=== PATIENT | female | born 1990 | race Caucasian/White ===

== ENCOUNTER 2023-03-18 07:30 | Inpatient (IN) ==
--- OUTSIDE RECORDS SUMMARY | 2023-03-18 07:37 | External Medical Summary | Summary of Care ---
Author Name Unknown Organization [facility] Address [address] [facility] [place] [address] Phone [phone] Care Team Providers Care Business Banker Name Role Phone Iain Ayon PA-C Primary Care Provider Reason for Visit * Reason Comments Return Visit Encounter Details Date Type Department Care Team (Late st Contact Info) Description 03/04/2023 3:45 PM EST Office Visit Gynecology/Obstetics Soc[facility] Carrero [address] [facility] [place] [phone] Evelyn Roger PA-C [address] [facility] [place] [phone] Supervision of high-risk , third trimester*; Chronic hypertension in ; Antepartum multigravida of advanced maternal age; History of pre-eclampsia Allergies No known active allergiesdocumented as of this encounter (statuses as of 03/05/2023) Medications Medication Sig Dispensed Refills Start Date End Date Status +DHA 28-0.975 & 200 MG Oral Take 1 Tablet by mouth daily. 0 Active Cetirizine HCl 10 MG Oral Tablet (ZyrTEC) Take 1 Tablet by mouth in the morning. 0 Active Docusate Sodium 100 MG Oral Capsule (Colace) Take 1 Capsule by mouth daily as needed for Constipation. 30 Capsule 2 11/18/2022 Active Ondansetron 4 MG Oral Tablet Disintegrating (Zofran) Place 1 Tablet on tongue every 8 hours as needed for Nausea. dissolve on tongue. 30 Tablet 1 12/25/2022 Active Ferrous Sulfate 325 (65 Fe) MG Oral Tablet (Feosol) Take 1 Tablet by mouth daily. 90 Tablet 0 12/30/2022 Active Labetalol HCl 100 MG Oral Tablet (Normodyne)Indications :Chronic hypertension in Take 2 Tablets by mouth in the morning and 2 Tablets before bedtime. 120 Tablet 3 01/31/2023 Active documented as of this encounter (statuses as of 03/05/2023) Active Problems Problem Noted Date Diagnosed Date Uterine fibroid in 11/27/2022 Last Assessment & Plan: Fibroid is anterior and stable in size from first trimester exam. It is nonobstructive. Antepartum multigravida of advanced maternal age 0508/15/2022 Overview: Ms. Renteria will be 33 years-old at time of delivery ([facility] 03/24/23). Qnatal testing is low risk. Last Assessment & Plan: CONSIDERATIONS: We reviewed the most pertinent aspects of the following: Advanced maternal age (AMA) refers to a woman with a singh who will be at the age of 35 or older at the estimated time of delivery and may be associated with increased morbidity. Cell-free DNA (cffDNA) screening is a genetic screening option that analyzes maternal blood for DNA that is placental in origin and targets the following conditions: Trisomy 21 (Down syndrome), trisomy 18, trisomy 13, and sex chromosome abnormalities such as monosomy X (Bennett syndrome), and sex chromosome trisomies (triple X, Klinefelter syndrome, XYY). It may also evaluate for other genetic alterations such as microdeletions, depending on the specific test. It reveals the sex of the fetus but should generally not be performed solely for this indication. The screening test can be performed after 10 weeks gestation. Results provided are NOT diagnostic, but provide a risk estimate. Types of results include low-risk/negative, high-risk/positive, and inconclusive. Low-risk results convey a low risk for the conditions screened, while high-risk results will indicate which condition is high risk and the likelihood of the condition based on the results. High-risk and inconclusive results would require follow up with a Maternal- Medicine genetic counselor. Amniocentesis would be recommended in the setting of high-risk results. Results are available 5-7 days after the test is completed. Cost of cffDNA screening is dependent on health insurance plan. Brochure provided to patient with contact information to call and inquire about insurance coverage [place] [address]). Patient aware not all insurances cover this test. The performing laboratory will bill the insurance directly. Offer MSAFP only (not Quad Screen) at 16-22 weeks if screening for open neural tube defects is desired. Amniocentesis for diagnosis of chromosomal abnormalities is also available. The risk of complications from the procedure and that risk is 1 in 500 (0.2%). In addition to the risk of chromosomal abnormalities, there is an increased risk of congenital/structural anomalies. RECOMMENDATIONS: Recommend MFM anatomy ultrasound at 19-20 weeks gestation. Obesity in , antepartum 08/15/2022 Overview: Pre-gravid BMI 33.57 (#185, 5'2") Passed early 1 hour glucose test. Last Assessment & Plan: I reviewed the ultrasound. The anatomy that was visualized appears unremarkable and the biometry is appropriate for the gestational age. The amniotic fluid volume is subjectively normal. I reviewed her low risk noninvasive screen in light of a normal ultrasound finding. BMI 34.0-34.9,adult 08/13/2022 Overview: Advised early one hour glucose test. MATERNAL MEDICINE referral made related nausea, antepartum 08/13/2022 Overview: Has Zofran if needed - only used one time. Doing well overall with nausea. Anxiety during 08/13/2022 Overview: Reports anxiety is stable overall without medication. Patient declines assistance. No thoughts of self harm. Last Assessment & Plan: She does state her anxiety is worsening during the . She does not see a counselor nor shown any medication. She tried a low dose of Lexapro in the past with no success. Did discuss with her the benefits of adequately treating anxiety during the . I told her that in patients who have inadequately or poorly treated anxiety and depression in the antepartum period, they are at an increased risk for depression. Therefore, I do recommend treating her during the antepartum. . We discussed the possibility of medications. She was referred to our behavioral health specialist for counseling as well. Supervision of high-risk , [facility] 07/25/2022 Overview: Estimated Date of Delivery: 03/24/23 Continue vitamin. O positive blood type. Rubella and varicella immune. Qnatal testing low risk. Declines MSAFP testing. S/p MATERNAL MEDICINE anatomy ultrasound. Following with MATERNAL MEDICINE for growth ultrasounds. Passed 1 hour glucose test. S/p CBC with anemia - started on iron. Tdap vaccine completed. GBS culture negative. contraception: possible tubal ligation. Desires a breast pump. Has a breast pump. Patient desires influenza vaccine. Chronic hypertension in 07/25/2022 Overview: Chronic hypertension since 2015. Advised patient to schedule an eye exam appointment. EKG normal. Stable on Labetalol. Continue baby aspirin 81 mg daily. Seeing MATERNAL MEDICINE. Referral made to try to get patient blood pressure cuff. Patient has a hand cuff at home, but would like a good blood pressure cuff. Recommended daily blood pressure readings. Last Assessment & Plan: She presents for follow-up of growth secondary to CHTN on medications. Today's ultrasound notes the following: The estimated weight is appropriate for gestational age in the 38th percentile. The visualized anatomy is unremarkable in appearance. The CONNER is normal. A 5.8 cm anterior uterine fibroid is noted. Medication exposure during first trimester of pr egnancy 07/25/2022 Overview: Exposure to Lisinopril in the first trimester. Stopped with knowledge of . Last Assessment & Plan: Lisinopril. When used after the first trimester, APARNA inhibitors such as lisinopril can cause low levels of amniotic fluid, which can lead to Low levels of amniotic fluid can lead to poor lung development, poor growth, poor development of the skull bones, defects, and problems with the development of the kidneys. In the most severe cases, could occur. APARNA inhibitors can also cause low blood pressure and kidney failure in the baby. There are some cases of babies who have from these complications. APARNA inhibitors should be avoided during the second and third trimesters of . HTN, goal below 140/90 07/04/2015 History of pre-eclampsia 07/04/2015 Overview: History of pre-eclampsia with first in 2013. Advised baby aspirin 81 mg daily at 13 weeks. Patient agrees. Baseline pre-eclampsia labs completed. Last Assessment & Plan: CONSIDERATIONS: Discussed that the overall recurrence rate for pre-eclampsia is 20%. The recurrence risk of pre-eclampsia is 5-7% if it was uncomplicated pre-eclampsia in the prior . If it was pre-eclampsia with severe features in the prior , the recurrence risk goes up to 30-65%. Explained to patient that risk factors for development of pre-eclampsia include the primigravid state, history of pre-eclampsia in previous , family history of pre-eclampsia, presence of chronic hypertension, increased BMI, multiple gestation, pre-existing maternal renal disease or diabetes, advanced maternal age, antiphospholipid syndrome and other coagulopathies, chronic maternal autoimmune disease, or prolonged interval between pregnancies. Discussed with patient that the risks associated with a diagnosis of pre- eclampsia which is not monitored and not managed appropriately include development of HELLP syndrome or eclampsia (seizures) and end organ damage to liver, brain, kidneys, or fetus (manifested by growth restriction or ), and even maternal . RECOMMENDATIONS: Recommend baseline pre-eclamptic labwork be done early in subsequent pregnancies to include CBC, AST/ALT, creatinine, and 24 hour total urine protein. Patients should be monitored closely in subsequent pregnancies for signs of pre-eclampsia and managed appropriately to reduce the incidence of associated maternal and risks. Reviewed that pre-eclampsia and HELLP are not preventable conditions. There is some evidence that daily ASA 81mg may decrease the risk for recurrence in patients with a history of pre-eclampsia, and we recommend that she proceed with starting this therapy after 12 weeks. Estimated Date of Delivery Comme nts Yes 03/24/2023 Based on last me nstrual period of 06/17/2022 (Exact Date) documented as of this encounter (statuses as of 03/05/2023) Immunizations Name Administration Dates Next Due Seasonal Influenza, PF, 6 M & above, IM , (FluLaval or Fluzone) 02/04/2023 TDAP (age 10 and older)(Boostrix) 01/24/2023, documented as of this encounter Social History Tobacco Use Types Packs/Day Years Used Date Smoking Tobacco: Never Smokeless Tobacco: Never Alcohol Use Standard Drinks/Week Comments Not Currently 0 (1 standard drink = 0.6 oz pur e alcohol) Denies in PHQ-2 Answer Date Recorded PHQ-2 Score -1 01/26/2018 Hunger Vital Sign Answer Date Recorded Within the past 12 months, y ou worried that your food would run out before you got the money to buy more. Never true 11/14/19 23 Within the past 12 months, t he food you bought just didn't last and you didn't have money to get more. Never true 11/13/2022 [place] Depression Scale Answer Date Recorded [place] Depression Scale Total 6 08/13/2022 The thought of harming myself has occurred to me . Never 08/13/2022 Estimated Date of Delivery Comme nts Yes 03/24/2023 Based on last me nstrual period of 06/17/2022 (Exact Date) Sex and Gender Information Value Date Recorded Sex Assigned at Female 07/23/2022 8:49 PM EDT Gender Identity Female 07/23/2022 8:49 PM EDT Sexual Orientation Straight 07/23/2022 8: 49 PM EDT Job Start Date Occupation Industry Not on file Not on file Not on file documented as of this encounter Last Filed Vital Signs Vital Sign Reading Time Taken Comments Blood Pressure 134/76 03/04/2023 3:28 PM EST Pulse - - Temperature - - Respiratory Rate - - Oxygen Saturation - - Inhaled Oxygen Concentration - - Weight 96.4 kg (212 lb 8 oz) 03/04/2023 3:28 PM EST Height - - Body Mass Index 38.56 07/31/2017 7:22 PM EDT documented in this encounter Progress Notes * Evelyn Roger PA-C - 03/04/2023 3:39 PM EST Evelyn Renteria presents for visit at 37w1d. BP 134/76 | Wt 96.4 kg (212 lb 8 oz) | LMP 06/17/2022 (Exact Date) | BMI 38.56 kg/m | BSA 2.06 m Doing well. Denies vaginal bleeding, leaking of fluid, abdominal pain, or abnormal vaginal discharge. Denies headaches, blurry vision, or right upper quadrant pain. Patient states she feels good movement. Patient has some irregular contractions and vaginal pressure at times. Patient declines cervical check. Blood pressure readings: 132/83 mmHg 124/86 mmHg 124/76 mmHg Physical Exam General: alert and oriented, no acute distress Pulmonary: normal respiratory effort, no accessory muscle use. Abdomen: gravid, soft, non-tender heart rate: 130's bpm [place] Problems (from 08/06/22 to present) Problem Noted Resolved Antepartum multigravida of advanced maternal age 508/15/2022 by Jayda Houston CRNP No MsLisbeth Renteria will be 33 years-old at time of delivery ([facility] 03/24/23). Qnatal testing is low risk. Obesity in , antepartum 08/15/2022 by Jayda Houston CRNP No Pre-gravid BMI 33.57 (#185, 5'2") Anxiety during 08/13/2022 by Evelyn Roger PA-C No Reports anxiety is stable overall without medication. Patient declines assistance. No thoughts of self harm. Supervision of high-risk , third trimester 07/25/2022 by Evelyn Roger PA-C No Estimated Date of Delivery: 03/24/23 Continue vitamin. O positive blood type. Rubella and varicella immune. Qnatal testing low risk. Declines MSAFP testing. S/p MATERNAL MEDICINE anatomy ultrasound. Following with MATERNAL MEDICINE for growth ultrasounds. Passed 1 hour glucose test. S/p CBC with anemia - started on iron. Tdap vaccine completed. GBS culture negative. contraception: possible tubal ligation. Desires a breast pump. Has a breast pump. Patient desires influenza vaccine. Chronic hypertension in 07/25/2022 by Evelyn Roger PA-C No Chronic hypertension since 2015. Advised patient to schedule an eye exam appointment. EKG normal. Stable on Labetalol. Continue baby aspirin 81 mg daily. Seeing MATERNAL MEDICINE. Referral made to try to get patient blood pressure cuff. Patient has a hand cuff at home, but wouldlike a good blood pressure cuff. Recommended daily blood pressure readings. Medication exposure during first trimester of 07/25/2022 by Evelyn Roger PA-C No Exposure to Lisinopril in the first trimester. Stopped with knowledge of . History of pre-eclampsia 07/04/2015 by Claudia Fritz PA-C No History of pre-eclampsia with first in 2013. Advised baby aspirin 81 mg daily at 13 weeks. Patient agrees. Baseline pre-eclampsia labs completed. Plan: -GBS culture negative. -Patient scheduled for IOL at [facility] on 03/18/2023. -O positive blood type. -Blood pressure normal today and at home. Patient denies pre-eclampsia symptoms. Counseled patient on pre-eclampsia symptoms to monitor for. Patient and myself discussed doing pre-eclampsia lab work - patient declines at this time due to normal blood pressure and no symptoms of pre-eclampsia. -BPP /. Weekly BPP until delivery. Counseled patient to call triage/go to labor and delivery if she has any vaginal bleeding, leaking of fluid, vaginal pressure, 6 or more painful contractions in an hour, abdominal pain, decreased movements, headaches, blurry vision, or right upper quadrant pain. Patient verbalized understanding. RTO in 1 week for return appointment or sooner if any concerns. Evelyn Hyatt PA-C documented in this encounter Nursing Notes * Aurelia Rosario LPN - 03/04/2023 3:28 PM EST Routine OB check. Denies questions or complaints. documented in this encounter Plan of Treatment Upcoming Encounters Date Type Department Care Team (Latest Contact Info) Description 03/10/2023 3:45 PM EST Office Visit Gynecology/Obstetic s [address] [phone] Evelyn Roger PA-C [address] [place] [address] 03/11/2023 3:00 PM EST Imaging Radiology, [place] [address] [place] [phone] 03/18/2023 7:00 PM EST Hospital Encounter [facility], OB Triage, Women's Lower Level 1st Floor [address] [place] [address] Nickolas Giordano MD [address] [place] [address] 03/18/2023 7:00 PM EST - 03/18/2023 9:47 PM EST Surgery [facility], OB Triage, Women's Lower Level 1st Floor [address] [place] [address] Nickolas Giordano MD [address] [place] [address] INDUCTION FOR VAGINAL DELIVERY Scheduled Procedures Name Priority Associated Diagnoses Date/Ti me INDUCTION FOR VAGINAL DELIVERY 39 weeks gestation of 03/18/2023 7:00 PM EST Health Maintenance Due Date Last Done Comments Hepatitis B (1 of 3 - 3-dose series) 1990 Depression Screening 08/29/2018 08/29/2017 COVID-19 Vaccine ( season) 2022 02/16/2021, 04/21/2020, 03/31/2020 GFR 02/01/2024 01/31/2023, 09/2022, 08/13/2022, Additional history exists Pap Smear 08/13/2025 08/13/2022, 07/25/2016 Diabetes Screening 01/31/2026 01/31/2023, 0 08/13/2022, 07/29/2017, Additional history exists Cervical Cancer Screening 08/14/2027 HPV/Co-Test 08/14/2027 08/13/2022 DTaP,Tdap,and Td Vaccines (3 - Td or Tdap) 01/24/2033 01/24/2023, 06/19/2015 Influenza Vaccine (FLU shot) Completed , 01/13/2021, 12/23/2019, Additional history exists GARDASIL-HPV IMMUNIZATION SERIES Aged Out No longer eligible based on patient's age to complete this topic MENINGOCOCCAL (MENACTRA/MENVEO) Aged Out No longer eligible based on patient's age to complete this topic Pneumococcal Vaccine: Pediatrics (0 to 5 Years) and At-Risk Patients (6 to 64 Years) Aged Out No longer eligible based on patient's age to complete this topic documented as of this encounter Medical Devices Not on filedocumented as of this encounter Visit Diagnoses Diagnosis Supervision of high-risk , third trimester- Primary Chronic hypertension in Benign essential hypertension complicating , childbirth, and the puerperium, unspecified as to episode of care Antepartum multigravida of advanced maternal age History of pre-eclampsia 39 weeks gestation of state, incidental documented in this encounter Care Teams Business Banker Relationship Specialty Start Date End Date Iain Ayon PA-C [address] [id number] [place] [phone] PCP - General Physician Operating System Designer 07/23/22 documented as of this encounter
--- OUTSIDE RECORDS SUMMARY | 2023-03-18 07:37 | External Medical Summary | Summary of Care ---
Author Name Unknown Organization [facility] Address [address] [facility] [place] [address] Phone [phone] Care Team Providers Care Curriculum Developer Name Role Phone Iain Ayon PA-C Primary Care Provider Reason for Visit * Reason Onset Date Comments Advice 03/05/2023 Encounter Details Date Type Department Care Team ([facility] st Contact Info) Description 03/05/2023 Telephone Gynecology/Obstetics Soco Carrero [address] [facility] [place] [phone] Evelyn Roger PA-C 68 [facility] [place] [address] Advice Allergies No known active allergiesdocumented as of [...] insurance coverage and cost ([place] [address]). Patient aware not all insurances cover this [...] counseling as well. Supervision of high-risk , [facility] 07/25/2022 Overview: Estimated Date of Delivery: [...] money to buy more. Never true 11/14/19 Within the past 12 months, t he food you bought just didn't last and you didn't have money to get more. Never true 11/13/2022 [place] Depression Scale Answer Date Recorded [place] Depression Scale Total 6 08/13/2022 The thought [...] on file documented as of this encounter Miscellaneous Notes * Telephone Encounter - Evelyn Roger PA-C - 03/05/2023 9:42 PM EST Patient sent a Xmyboxer message and contacted me about her blood pressure. Patient took her Labetalol 200 mg BID today. Patient reports blood pressure readings in 150's/90's. Patient had a headache this morning as well.Patient has a history of pre-eclampsia with prior . Patient's blood pressure normal in theoffice yesterday. Called and spoke with Dr. Patel at [facility]. Gave report to Dr. Patel and Dr. Patel agreeable shyann coming to [facility] for evaluation. Spoke with patient and she is going to [facility] now for evaluation. documented in this encounter Plan of Treatment Upcoming Encounters Date Type Department Care Team (Latest Contact Info) Description 03/10/2023 3:45 PM EST Office Visit Gynecology/Obstetic s [address] [phone] Evelyn Roger PA-C [address] [place] [address] 03/11/2023 3:00 PM EST Imaging Radiology, [place] [address] [place] [phone] 03/18/2023 7:00 PM EST Hospital Encounter [facility], OB Triage, Women's Lower Level 1st Floor [address] [place] [address] Nickolas Giordano MD [address] [place] [address] 03/18/2023 7:00 PM EST - 03/18/2023 9:47 PM EST Surgery [facility], OB Triage, Women's Lower Level 1st Floor [address] [place] [address] Nickolas Giordano MD [address] [place] [address] INDUCTION FOR VAGINAL DELIVERY Scheduled Procedures Name [...] Not on filedocumented as of this encounter Care Teams Curriculum Developer Relationship Specialty Start Date End Date aIin Ayon PA-C [address] [address] [place] [phone] PCP - General Physician Inspector Structural Bonding 07/23/22 documented as of this encounter
--- OUTSIDE RECORDS SUMMARY | 2023-03-18 07:37 | External Medical Summary ---
Author Name Unknown Address Unknown Organization [facility] [address] [address] Laboratory Report Ordering Provider Test Date Status MERCEDES ROWE 03/10/2023 16:28:56 Final Observation Date Value Abnormality Reference (Units ) Status WBC, Total 03/10/2023 16:28:56 7.50 4.00-10.80 (K/uL) Final RBC 03/10/2023 16:28:56 3.58 3.85-5.15 (M/uL) Final Hemoglobin 03/10/2023 16:28:56 11.2 Below low normal 12.0-15.3 (g/dL) Final HCT 03/10/2023 16:28:56 32.9 Below low normal 36.0-45.2 (%) Final MCV 03/10/2023 16:28:56 91.9 81.5-97.5 (fL) Final MCH 03/10/2023 16:28:56 31.3 27.0-34.0 (pg) Final MCHC 03/10/2023 16:28:56 34.0 32.0-36.0 (g/dL) Final RDW 03/10/2023 16:28:56 12.8 11.5-15.5 (%) Final Platelets 03/10/2023 16:28:56 297 140-400 (K/uL) Final MPV 03/10/2023 16:28:56 9.7 6.6-11.1 (fL) Final Nucleated erythrocytes/100 leukocytes [Ratio] in Blood by Automated count 03/10/2023 16:28:56 0 <=0 (/100 WBCs) Final Performing Location [facility] [place] - [address] [place], [place] [id number] [facility] [address]
--- OUTSIDE RECORDS SUMMARY | 2023-03-18 07:37 | External Medical Summary | Summary of Care ---
Author Name Unknown Organization [facility] Address [address] [place] [address] Phone [phone] Care Team Providers Care Applied Psychology Teacher Name Role Phone Iain Ayon PA-C Primary Care Provider Reason for Visit * Reason Comments Blood Pressure Check Encounter Details Date Type Department Care Team (Late st Contact Info) Description 03/07/2023 3:45 PM EST Nurse Only [facility]necology[facility]Obstetics [place] [facility] [phone] [place], Nurse Ballet Teacher [address] [place] [address] Blood Pressure Check Allergies No known active allergiesdocumented as of this encounter (statuses as of 03/07/2023) Medications Medication Sig Dispensed Refills Start Date [...] as of this encounter (statuses as of 03/07/2023) Active Problems Problem Noted Date Diagnosed Date [...] insurance coverage and cost ([place] [address]). Patient aware not all insurances cover this [...] counseling as well. Supervision of high-risk , third [facility] 07/25/2022 Overview: Estimated Date of Delivery: [...] as of this encounter (statuses as of 03/07/2023) Immunizations Name Administration Dates Next Due Seasonal [...] money to get more. Never true 11/13/2022 [place] Depression Scale Answer Date Recorded [place] Depression Scale Total 6 08/13/2022 The thought [...] Sign Reading Time Taken Comments Blood Pressure 142/86 03/07/2023 3:40 PM EST Pulse - - Temperature - - Respiratory Rate - - Oxygen Saturation - - Inhaled Oxygen Concentration - - Weight - - Height - - Body Mass Index - - documented in this encounter Nursing Notes * Ciera Lane CCMA - 03/07/2023 3:40 PM EST Pt presents for BP check. Identified by name and . Denies any concerns. Made Gualberto Bustillo MD aware of today's ready. visited with pt documented in this encounter Plan of Treatment Upcoming Encounters Date Type Department Care Team (Latest Contact Info) Description 03/10/2023 3:45 PM EST Office Visit Gynecology/Obstetic s [place] [address] [place] [phone] Evelyn Roger PA-C [address] [place] [address] 03/11/2023 3:00 PM EST Imaging Radiology, [place] [address] [place] [phone] 03/18/2023 7:00 PM EST Hospital Encounter [facility], OB Triage, Women's Lower Level 1st Floor [address] [place] [address] Nickolas Giordano MD [address] [place] [address] 03/18/2023 7:00 PM EST - 03/18/2023 9:47 PM EST Surgery [facility], OB Triage, Women's Lower Level 1st Floor [address] [place] [address] Nickolas Giordano MD [address] [place], [place] [phone] INDUCTION FOR VAGINAL DELIVERY Scheduled Procedures Name Priority Associated Diagnoses Date/Ti me INDUCTION FOR VAGINAL DELIVERY 39 weeks gestation of 03/18/2023 7:00 PM EST Health Maintenance Due Date Last Done Comments Hepatitis B (1 of 3 - 3-dose series) 1988 Depression Screening 08/29/2018 08/29/2017 COVID-19 Vaccine ( season) 2022 02/16/2021, 04/21/2020, 03/31/2020 GFR 03/05/2024 03/05/2023, 01/22, 12/28/2022, Additional history exists Pap Smear 08/13/2025 08/13/2022, 07/25/2016 Diabetes Screening 03/05/2026 03/05/2023, 1 04/02/2022, 08/13/2022, Additional history exists Cervical Cancer Screening 08/14/2027 [...] filedocumented as of this encounter Care Teams Applied Psychology Teacher Relationship Specialty Start Date End Date Iain Ayon PA-C [address] [address] [place] [address] PCP - General Physician Reprographics Technician 07/23/22 documented as of this encounter
--- OUTSIDE RECORDS SUMMARY | 2023-03-18 07:37 | External Medical Summary ---
Author Name Unknown Address Unknown Organization K01:LABORATORY [facility] - [address] [place] [id number] Laboratory Report Ordering Provider Test Date Status MERCEDES ROWE 03/10/2023 16:28:56 Final Observation Date Value Abnormality Reference (Units ) Status BUN 03/10/2023 16:28:56 11 6-20 (mg/dL) Final Creatinine 03/10/2023 16:28:56 0.7 0.5-1.0 (mg/dL) Final Glomerular filtration rate/1.73 sq M.predicted [Volume Rate/Area] in Serum, Plasma or Blood by Creatinine-based formula (CKD-EPI) 03/10/2023 16:28:56 >90 >=60 (mL/min) Final eGFR is calculated based on the CKD-EPI 2020 equation SODIUM 03/10/2023 16:28:56 138 135-146 (m mol/L) Final Potassium 03/10/2023 16:28:56 4.2 3.5-5.1 (m mol/L) Final Cl 03/10/2023 16:28:56 107 98-107 (mm ol/L) Final CO2 03/10/2023 16:28:56 21 Below low normal 22- 32 (mmol/L) Final Anion gap 03/10/2023 16:28:56 10 7-15 (mmol /L) Final Glucose 03/10/2023 16:28:56 98 70-120 (mg /dL) Final Albumin 03/10/2023 16:28:56 3.8 3.8-5.0 (g /dL) Final AST (Aspartate aminotransferase) 03/10/2023 16:28:56 18 10-35 (U/L) Fin al Alk Phos 03/10/2023 16:28:56 107 35-130 (U/ L) Final Bilirubin, Total 03/10/2023 16:28:56 0.2 <=1 .2 (mg/dL) Final Calcium 03/10/2023 16:28:56 9.3 8.4-10.2 ( mg/dL) Final Protein 03/10/2023 16:28:56 6.0 6.0-8.3 (g /dL) Final ALT (Alanine aminotransferase) 03/10/2023 16:28:56 21 10-35 (U/L) Wallace davis Performing Location [facility] - [facility] [address] Ev[address]. [facility] [address]
--- OUTSIDE RECORDS SUMMARY | 2023-03-18 07:37 | External Medical Summary | Summary of Care ---
Author Name Unknown Organization [facility] Address [address] [facility] [place] [address] Phone [phone] Care Team Providers Care Pulmonary Physical Therapist Name Role Phone Iain Ayon PA-C Primary Care Provider Reason for Visit * Reason Comments Return Visit Encounter Details Date Type Department Care Team (Late st Contact Info) Description 03/10/2023 3:45 PM EST Office Visit Gynecology/Obstetics [place] 68 [facility] [place] [phone] Evelyn Roger PA-C 68 [facility] [place] [phone] Supervision of high-risk , third trimester*; Chronic hypertension in ; headache in third trimester; Obesity in , antepartum; Antepartum multigravida of advanced maternal age Allergies No known active allergiesdocumented as of this encounter (statuses as of 03/14/2023) Medications Medication Sig Dispensed Refills Start Date [...] as of this encounter (statuses as of 03/14/2023) Active Problems Problem Noted Date Diagnosed Date [...] insurance coverage and cost ([place] [address]). Patient aware not all insurances cover this [...] counseling as well. [facility] Overview: Estimated Date of Delivery: [...] as of this encounter (statuses as of 03/14/2023) Immunizations Name Administration Dates Next Due Seasonal [...] money to get more. Never true 11/13/2022 [place] Depression Scale Answer Date Recorded [place] Depression Scale Total 6 08/13/2022 The thought [...] Sign Reading Time Taken Comments Blood Pressure 142/82 03/10/2023 3:55 PM EST Pulse - - Temperature - - Respiratory Rate - - Oxygen Saturation - - Inhaled Oxygen Concentration - - Weight 96.2 kg (212 lb) 03/10/2023 3:55 PM EST Height - - Body Mass Index 38.46 07/31/2017 7:22 PM EDT documented in this encounter Patient Instructions * Patient Instructions* Evelyn Roger PA-C - 03/10/2023 4:14 PM EST Membrane sweep at induction. documented in this encounter Progress Notes * Ciera Lane CCMA - 03/10/2023 3:55 PM EST Pt here for gloria visit * Evelyn Roger PA-C - 03/10/2023 3:50 PM EST Evelyn Renteria presents for visit at 38w0d. BP 142/82 | Wt 96.2 kg (212 lb) | LMP 06/17/2022 (Exact Date) | BMI 38.46 kg/m | BSA 2.06 m Doing well. Denies vaginal bleeding, leaking of fluid, vaginal pressure, abdominal pain, or abnormal vaginal discharge. Denies headaches, blurry vision, or right upper quadrant pain. Patient states she feels good movement. Patient has some jordana da silva contractions less than 30 seconds in length and irregular. Patient has some intermittent vaginal pressure as well. Patient is getting daily headaches every morning that do resolve with Tylenol. Patient will then get a headache the next morning. Patient thinks that the headaches are due to her sinus congestion/weather as well. Lab work from [facility] triage visit: Platelet count: 257 Creatinine 0.85 BUN 13 AST 17 ALT 16 Pr/Cr urine: no result. Physical Exam General: alert and oriented, no acute distress Pulmonary: normal respiratory effort, no accessory muscle use. Abdomen: gravid, soft, non-tender heart rate: 140's bpm Pelvic Exam: external genitalia and vagina anatomy within normal limits Cervix: closed/thick/high Chemical Economist Documentation Patient offered lodging house keeper and declined. [facility] Problems (from 08/06/22 to present) Problem Noted Resolved Antepartum multigravida of advanced maternal age 508/15/2022 by Jayda Houston CRNP No MsLisbeth Renteria will be 33 years-old at time of delivery ([facility] 03/24/23). Qnatal testing is low risk. Obesity in , antepartum 08/15/2022 by Jayda Houston CRNP No Pre-gravid BMI 33.57 (#185, 5'2") Supervision of high-risk , third trimester 07/25/2022 by Evelyn Roger PA-C No Estimated Date of Delivery: 03/24/23 Continue vitamin. O positive blood type. Rubella and varicella immune. Qnatal testing low risk. Declines MSAFP testing. S/p MATERNAL MEDICINE anatomy ultrasound. Following with MATERNAL MEDICINE for growth ultrasounds. Passed 1 hour glucose test. S/p CBC with anemia - on iron. Tdap vaccine completed. GBS culture negative. contraception: possible tubal ligation. Desires a breast pump. Has a breast pump. Patient desires influenza vaccine. Chronic hypertension in 07/25/2022 by Evelyn Roger PA-C No Chronic hypertension since 2015. Advised patient to schedule an eye exam appointment. EKG normal. Stable on Labetalol. Continue baby aspirin 81 mg daily. Seeing MATERNAL MEDICINE. Getting weekly BPP. Delivery at 39 weeks - hypertension well controlled. Medication exposure during first trimester of 07/25/2022 by Evelyn Roger PA-C No Exposure to Lisinopril in the first trimester. Stopped with knowledge of . History of pre-eclampsia 07/04/2015 by Claudia Fritz PA-C No History of pre-eclampsia with first in 2013. Advised baby aspirin 81 mg daily at 13 weeks. Patient agrees. Baseline pre-eclampsia labs completed. Plan: -Chronic hypertension well controlled. Pre-eclampsia lab work ordered. Discussed plan with Dr. Bustillo and can keep 39 week induction as long as pre-eclampsia lab work is normal. -GBS culture negative. -[facility] -Getting weekly BPP for monitoring. -O positive blood type. -Counseled patient on pre-eclampsia symptoms to monitor for and to go to [facility] with those symptoms. -[facility] as of 03/11/2023. -Patient desires blood pressure check on Friday and Friday since patient has stopped using home cuff due to getting abnormal readings at home. Counseled patient to call triage/go to labor and delivery if she has any vaginal bleeding, leaking of fluid, vaginal pressure, 6 or more painful contractions in an hour, abdominal pain, decreased movements, headaches, blurry vision, or right upper quadrant pain. Patient verbalized understanding. Return to the office for 6 weeks appointment or sooner if any concerns. Evelyn Hyatt PA-C documented in this encounter Plan of Treatment Upcoming Encounters Date Type Department Care Team (Latest Contact Info) Description 03/14/2023 10:00 AM EST Nurse Only Gynecology/Obstetic s [place] [phone] [place], Nurse Painting Technician [address] [address] 03/18/2023 7:00 PM EST Hospital Encounter [facility], OB Triage, Women's Lower Level 1st Floor [address] [place] [address] Nickolas Giordano MD [address] [place] [address] 03/18/2023 7:00 PM EST - 03/18/2023 9:47 PM EST Surgery [facility], OB Triage, Women's Lower Level 1st Floor [address] [place] [address] Nickolas Giordano MD [address] [place] [address] INDUCTION FOR VAGINAL DELIVERY Scheduled Procedures Name Priority Associated Diagnoses Date/Ti me INDUCTION FOR VAGINAL DELIVERY 39 weeks gestation of 03/18/2023 7:00 PM EST Health Maintenance Due Date Last Done Comments Hepatitis B (1 of 3 - 3-dose series) 1988 Depression Screening 08/29/2018 08/29/2017 COVID-19 Vaccine ( season) 2022 02/16/2021, 04/21/2020, 03/31/2020 GFR 03/10/2024 03/10/2023, 02/21, 01/31/2023, Additional history exists Pap Smear 08/13/2025 08/13/2022, 07/25/2016 Diabetes Screening 03/10/2026 03/10/2023, 1 05/06/2022, 01/31/2023, Additional history exists Cervical Cancer Screening 08/14/2027 [...] Not on filedocumented as of this encounter Procedures Procedure Name Priority Date/Time Associated Diagnosis Comments COMPREHENSIVE METABOLIC PANEL Routine 03/10/2023 4:28 PM EST headache in third trimester CBC Routine 03/10/2023 4:28 PM EST headache in third trimester PROTEIN/ CREATININE RATIO, URINE Routine 03/10/2023 4:14 PM EST headache in third trimester documented in this encounter Results * (ABNORMAL) COMPREHENSIVE METABOLIC PANEL (03/10/2023 4:28 PM EST) BUN 11 6 - 20 mg/dL 03/11/2023 12:44 AM EST [facility] Creatinine 0.7 0.5 - 1.0 mg/dL 03/11/2023 12:44 AM EST [facility] Estimated Glomerular Filtration Rate >90 >=60 mL/min 03/11/2023 12:44 AM EST [facility] Comment:eGFR is calculated b ased on the CKD-EPI 2020 equation Sodium 138 135 - 146 mmol/L 03/11/2023 12:44 AM EST [facility] Potassium 4.2 3.5 - 5.1 mmol/L 03/11/2023 12:44 AM EST [facility] Chloride 107 98 - 107 mmol/L 03/11/2023 12:44 AM EST [facility] CO2 21(L) 22 - 32 mmol/L 03/11/2023 12:44 AM EST [facility] Anion Gap 10 7 - 15 mmol/L 03/11/2023 12:44 AM EST [facility] Glucose 98 70 - 120 mg/dL 03/11/2023 12:44 AM EST [facility] Albumin 3.8 3.8 - 5.0 g/dL 03/11/2023 12:44 AM EST [facility] AST 18 10 - 35 U/L 03/11/2023 12:44 AM EST [facility] Alkaline Phosphatase 107 35 - 130 U/L 03/11/2023 12:44 AM EST [facility] Bilirubin, Total 0.2 <=1.2 mg/dL 03/11/2023 12:44 AM EST [facility] Calcium 9.3 8.4 - 10.2 mg/dL 03/11/2023 12:44 AM EST [facility] Protein 6.0 6.0 - 8.3 g/dL 03/11/2023 12:44 AM EST [facility] ALT 21 10 - 35 U/L 03/11/2023 12:44 AM EST [facility] Blood Venous blood specimen / Unknown Venipuncture / Unknown 03/10/2023 4:28 PM EST 03/10/2023 4:28 PM EST Evelyn Mccarthy PA-C LAB BLOOD ORDERABLES LABORATORY [facility] [address] [place] [address] * (ABNORMAL) CBC (03/10/2023 4:28 PM EST) WBC 7.50 4.00 - 10.80 K/uL 03/10/2023 11:58 PM EST [facility] RBC 3.58 3.85 - 5.15 M/uL 03/10/2023 11:58 PM EST [facility] HGB 11.2(L) 12.0 - 15.3 g/dL 03/10/2023 11:58 PM EST [facility] HCT 32.9(L) 36.0 - 45.2 % 03/10/2023 11:58 PM EST [facility] MCV 91.9 81.5 - 97.5 fL 03/10/2023 11:58 PM EST [facility] MCH 31.3 27.0 - 34.0 pg 03/10/2023 11:58 PM EST [facility] MCHC 34.0 32.0 - 36.0 g/dL 03/10/2023 11:58 PM EST [facility] RDW 12.8 11.5 - 15.5 % 03/10/2023 11:58 PM EST [facility] PLT 297 140 - 400 K/uL 03/10/2023 11:58 PM EST [facility] MPV 9.7 6.6 - 11.1 fL 03/10/2023 11:58 PM EST [facility] nRBCs 0 <=0 /100 WBCs 03/10/2023 11:58 PM EST [facility] Blood Venous blood specimen / Unknown Venipuncture / Unknown 03/10/2023 4:28 PM EST 03/10/2023 4:28 PM EST Evelyn Mccarthy PA-C LAB BLOOD ORDERABLES Performing Organization Address City/State/[facility] Co de Phone Number LABORATORY [facility] [address] [place] [address] * PROTEIN/ CREATININE RATIO, URINE (03/10/2023 4:14 PM EST) Protein/ Creatinine Ratio, Urine 72 <150 mg/g 03/10/2023 10:49 PM EST [facility] Protein, Random Urine 12 mg/dL 03/10/2023 10:49 PM EST [facility] Creatinine, Random Urine 167 mg/dL 03/10/2023 10:49 PM EST [facility] Urine Non-blood Collection / Unknown 03/10/2023 4:14 PM EST 03/10/2023 4:14 PM EST Narrative LABORATORY [facility] - 03/10/2023 10:49 PM EST Normal: <150 mg/g creatinine High: 150-500 mg/g creatinine Very High: >500 mg/g creatinine Nephrotic: >3000 mg/g creatinine Evelyn Mccarthy PA-C LAB URINE ORDERABLES LABORATORY [facility] 100 [facility] [place] [address] documented in this encounter Visit Diagnoses Diagnosis Supervision of high-risk , third trimester- Primary Chronic hypertension in Benign essential hypertension complicating , childbirth, and the puerperium, unspecified as to episode of care headache in third trimester Obesity in , antepartum Obesity complicating , childbirth, or the puerperium, antepartum condition or complication Antepartum multigravida of advanced maternal age 39 weeks gestation of state, incidental documented in this encounter Care Teams Pulmonary Physical Therapist Relationship Specialty Start Date End Date Iain Ayon PA-C 1 [facility] [place] [address] [place] [address] PCP - General Physician Director General 07/23/22 documented as of this encounter
--- OUTSIDE RECORDS SUMMARY | 2023-03-18 07:37 | External Medical Summary | Summary of Care ---
Author Name Unknown Organization [facility] Address [address] [place] [address] Phone [phone] Care Team Providers Care Mixing Machine Tender Name Role Phone Iain Ayon PA-C Primary Care Provider Reason for Visit * Reason Comments Outpatient Testing Encounter Details Date Type Department Care Team ([facility] st Contact Info) Description 03/10/2023 4:40 PM [facility] Laboratory Laboratory Patient Service [address] [phone] [address] Arrived Allergies No known active allergiesdocumented as of this encounter (statuses as of 03/10/2023) Medications Medication Sig Dispensed Refills Start Date [...] as of this encounter (statuses as of 03/10/2023) Active Problems Problem Noted Date Diagnosed Date [...] insurance coverage and cost ([place] [address]). Patient aware not all insurances cover this [...] Supervision of high-risk , third [facility] 07/25/2022 Overview: Estimated Date of Delivery: [...] as of this encounter (statuses as of 03/10/2023) Immunizations Name Administration Dates Next Due Seasonal [...] money to get more. Never true 11/13/2022 [place] Depression Scale Answer Date Recorded [place] Depression Scale Total 6 08/13/2022 The thought [...] on file documented as of this encounter Plan of Treatment Upcoming Encounters Date Type Department Care Team (Latest Contact Info) Description 03/11/2023 3:00 PM EST Imaging Radiology, [address] [phone] 03/18/2023 7:00 PM EST Hospital Encounter [facility], OB Triage, Women's Lower Level 1st Floor [address] [facility] [place] [address] Nickolas Giordano MD [address] [facility] [address] 03/18/2023 7:00 PM EST - 03/18/2023 9:47 PM EST Surgery [facility], OB Triage, Women's Lower Level 1st Floor [address] [place] [address] Nickolas Giordano MD [address] [place] [address] INDUCTION FOR VAGINAL DELIVERY Scheduled Procedures Name [...] filedocumented as of this encounter Care Teams Mixing Machine Tender Relationship Specialty Start Date End Date Iain Ayon PA-C 1 [facility] [address] [place] [address] PCP - General Physician Basket Filler 07/23/22 documented as of this encounter
--- OUTSIDE RECORDS SUMMARY | 2023-03-18 07:37 | External Medical Summary | Summary of Care ---
Author Name Unknown Organization [facility] Address [address] [place] [address] Phone [phone] Care Team Providers Care Inspector Chief Name Role Phone Iain Ayon PA-C Primary Care Provider Reason for Visit * Reason Comments Non Stress Test Encounter Details Date Type Department Care Team ([facility] st Contact Info) Description 03/14/2023 10:00 AM EST Nurse Only Gynecology/Obstetics [place] [facility] [place] [phone] [place], Nurse Vice President Of Talent Acquisition [address] [place] [address] Non Stress Test Allergies No known active allergiesdocumented as of [...] insurance coverage and cost ([place] [address]). Patient aware not all insurances cover this [...] as well. Supervision of high-risk , [facility] 07/25/2022 Overview: Estimated Date of [...] money to get more. Never true 11/13/2022 [place] Depression Scale Answer Date Recorded [place] Depression Scale Total 6 08/13/2022 The thought [...] Sign Reading Time Taken Comments Blood Pressure 132/86 03/14/2023 10:18 AM EST Pulse - - Temperature - - Respiratory Rate - - Oxygen Saturation - - Inhaled Oxygen Concentration - - Weight - - Height - - Body Mass Index - - documented in this encounter Nursing Notes * Erin Mcghee RN - 03/14/2023 10:19 AM EST Patient presents for blood pressure check. Reports she called special education teacher provider last night due to change in baby's movement. Feels baby moving but he is not moving like he normally does. Was told to mention at BP check today about getting an NST today. EFM applied at 1015. documented in this encounter Plan of Treatment Upcoming Encounters Date Type Department Care Team (Latest Contact Info) Description 03/18/2023 7:00 PM EST Hospital Encounter [facility], OB Triage, Women's Lower Level 1st Floor [address] [place] [address] Nickolas Giordano MD [address] [place] [address] 03/18/2023 7:00 PM EST - 03/18/2023 9:47 PM EST Surgery [facility], OB Triage, Women's Lower Level 1st Floor [address] [place] [address] Nickolas Giordano MD [address] [place] [address] INDUCTION FOR VAGINAL DELIVERY Pending Results Name Type Priority Associated Diagnoses Date /Time NON-STRESS TEST Procedures Routine Supervision of high-risk , third trimester Chronic hypertension in 03/14/2023 Scheduled Procedures Name Priority Associated Diagnoses Date/Ti [...] as of this encounter Visit Diagnoses Diagnosis Antepartum multigravida of advanced maternal age- Primary BMI 34.0-34.9,adult Body Mass Index 34.0-34.9, adult related nausea, antepartum Mild hyperemesis gravidarum, antepartum Anxiety during Supervision of high-risk , third trimester Medication exposure during first trimester of Supervision of other high-risk Chronic hypertension in Benign essential hypertension complicating , childbirth, and the puerperium, unspecified as to episode of care History of pre-eclampsia Obesity in , antepartum Obesity complicating , childbirth, or the puerperium, antepartum condition or complication 39 weeks gestation of state, incidental documented in this encounter Care Teams Inspector Chief Relationship Specialty Start Date End Date Iain Ayon PA-C [address] [place] [address] [place] [address] PCP - General Physician Line Construction Superintendent 07/23/22 documented as of this encounter
--- OUTSIDE RECORDS SUMMARY | 2023-03-18 07:37 | External Medical Summary | Summary of Care ---
Author Name Unknown Organization [facility] Address [address] [facility] [place] [address] Phone [phone] Care Team Providers Care Customer Support Executive Name Role Phone Iain Ayon PA-C Primary Care Provider Reason for Visit * Reason Comments Blood Pressure Check Encounter Details Date Type Department Care Team ([facility] st Contact Info) Description 03/06/2023 9:15 AM EST Office Visit Gynecology/Obstetics [place] 68 [facility] [place] [phone] Evelyn Roger PA-C 68 [facility] [place] [phone] Supervision of high-risk , third trimester*; Chronic hypertension in Allergies No known active allergiesdocumented as of this encounter (statuses as of 03/08/2023) Medications Medication Sig Dispensed Refills Start Date [...] as of this encounter (statuses as of 03/08/2023) Active Problems Problem Noted Date Diagnosed Date [...] insurance coverage and cost ([place] [address]). Patient aware not all insurances cover this [...] as well. Supervision of high-risk , third [facility] 07/25/2022 Overview: Estimated Date of Delivery: [...] as of this encounter (statuses as of 03/08/2023) Immunizations Name Administration Dates Next Due Seasonal [...] money to get more. Never true 11/13/2022 [place] Depression Scale Answer Date Recorded [place] Depression Scale Total 6 08/13/2022 The thought [...] Sign Reading Time Taken Comments Blood Pressure 136/84 03/06/2023 9:18 AM EST Pulse - - Temperature - - Respiratory Rate - - Oxygen Saturation - - Inhaled Oxygen Concentration - - Weight 94.2 kg (207 lb 11.2 oz) 03/06/2023 9:18 AM EST Height - - Body Mass Index 37.68 07/31/2017 7:22 PM EDT documented in this encounter Progress Notes * Evelyn Roger PA-C - 03/06/2023 9:20 AM EST Evelyn Renteria presents for visit at 37w3d. BP 136/84 | Wt 94.2 kg (207 lb 11.2 oz) | LMP 06/17/2022 (Exact Date) | BMI 37.68 kg/m | BSA 2.03m Doing well. Denies vaginal bleeding, leaking of fluid, vaginal pressure, contractions, abdominal pain, or abnormal vaginal discharge. Denies blurry vision, or right upper quadrant pain. Patient states she feels good movement. Patient reports that she has a sinus headache, but they resolve with Tylenol typically. Patient went to [facility] last night and pre-eclampsia lab work was normal. Her blood pressure was normal. Physical Exam General: alert and oriented, no acute distress Pulmonary: normal respiratory effort, no accessory muscle use. Abdomen: gravid, soft, non-tender heart rate: 130's bpm [place] Problems (from 08/06/22 to present) Problem Noted Resolved Antepartum multigravida of advanced maternal age 508/15/2022 by Jayda Houston CRNP No Ms. Renteria will be 33 years-old at [...] Patient agrees. Baseline pre-eclampsia labs completed. Plan: -Patient to [facility] last night and was evaluated. Blood pressure was stable Patient had normal pre-eclampsia labs last night. Advised patient to take Tylenol and if headache does not resolve withTylenol, advised patient to contact the office. Patient agrees. -Blood pressure check tomorrow in the office. Patient agrees. -Has appointment early next week as well. -O positive blood type. -GBS culture negative. -Patient signed release of records so that we could get her records from [facility]. Counseled patient to call triage/go to labor [...] 3:45 PM EST Office Visit Gynecology/Obstetic s [place] [address] [place] [phone] Evelyn Roger PA-C 68 [place] [address] 03/11/2023 3:00 PM EST Imaging Radiology, [address] [phone] 03/18/2023 7:00 PM EST Hospital Encounter [facility], OB Triage, Women's Lower Level 1st Floor [address] [place] [address] Nickolas Giordano MD [address] [place] [address] 03/18/2023 7:00 PM EST - 03/18/2023 9:47 PM EST Surgery [facility], OB Triage, Women's Lower Level 1st Floor [address] [place] [address] Nickolas Giordano MD [address] [place] [address] INDUCTION FOR VAGINAL DELIVERY Scheduled Procedures Name [...] puerperium, unspecified as to episode of care 39 weeks gestation of state, incidental documented in this encounter Care Teams Customer Support Executive Relationship Specialty Start Date End Date Iain Ayon PA-C [address] [address] [place] [address] PCP - General Physician Cancer Registry Coordinator 07/23/22 documented as of this encounter
--- OUTSIDE RECORDS SUMMARY | 2023-03-18 07:37 | External Medical Summary ---
Author Name Unknown Address Unknown Organization K01:[facility] - [address] [place] [address] Laboratory Report Ordering Provider Test Date Status MERCEDES ROWECRYSTAL 03/10/2023 16:14:54 Final Normal: <150 mg/ g creatinine
High: 150-500 mg/g creatinine
Very High: >500 mg/g creatinine
Nephrotic: >3000 mg/g creatinine Observation Date Value Abnormality Reference (Units ) Status Protein/Creatinine [Ratio] in Urine 03/10/2023 16:14:54 72 <150 (mg/g ) Final Protein, Urine 03/10/2023 16:14:54 12 (mg/dL) Final Creatinine, Urine 03/10/2023 16:14:54 167 (mg/dL) Final Performing Location [facility] - [address] [place] [address]
--- OUTSIDE RECORDS SUMMARY | 2023-03-18 07:37 | External Medical Summary | Summary of Care ---
Author Name Unknown Organization [facility] Address [address] [place] [address] Phone [phone] Care Team Providers Care Wet End Tester Name Role Phone Iain Ayon PA-C Primary Care Provider Encounter Details Date Type Department Care Team (Late st Contact Info) Description 01/09/2023 Telephone Roustabout Crew Pusher Obstetrics Maternal Medicine, [place] [address] [place] [address] [place], Nurse Roustabout Crew Pusher [facility] [address] [place] [address] Allergies No known active allergiesdocumented as of this encounter (statuses as of 03/06/2023) Medications Medication Sig Dispensed Refills Start Date [...] mouth daily. 90 Tablet 0 12/30/2022 Active documented as of this encounter (statuses as of 03/06/2023) Active Problems Problem Noted Date Diagnosed Date [...] insurance coverage and cost ([place] [address]). Patient aware not all insurances cover this [...] increased risk of congenital/structural anomalies. RECOMMENDATIONS: Recommend [facility] anatomy ultrasound at 19-20 weeks gestation. Obesity [...] counseling as well. Supervision of high-risk , [facility] 07/25/2022 Overview: Estimated Date of Delivery: 03/24/23 [...] of babies who have from these complications. AAPRNA inhibitors should be avoided during the second [...] as of this encounter (statuses as of 03/06/2023) Immunizations Name Administration Dates Next Due TDAP (age 10 and older)(Boostrix) 06/19/2015 documented as of this encounter Social History [...] money to get more. Never true 11/13/2022 [place] Depression Scale Answer Date Recorded [place] Depression Scale Total 6 08/13/2022 The thought [...] encounter Miscellaneous Notes * Telephone Encounter - Sue Spaulding OSA - 01/09/2023 1:43 PM EDT Had to cancel appt for 01-22 due to getting a new u/s machine. Called pt, no answer, LVM and sent myg documented in this encounter Plan of Treatment Upcoming Encounters Date Type Department Care Team (Latest Contact Info) Description 03/07/2023 3:45 PM EST Nurse Only Gynecology/Obstetic s [place] 68 [facility] [place] [phone] [place], Nurse Mapping Pilot [place] [facility] [phone] 03/10/2023 3:45 PM EST Office Visit Gynecology/Obstetic s [place] [address] [facility] [place] [phone] Evelyn Roger PA-C [facility] [place] [phone] 03/11/2023 3:00 PM EST Imaging Radiology, [address] [phone] 03/18/2023 7:00 PM EST Hospital Encounter [facility], OB Triage, Women's Lower Level 1st Floor [address] [place] [address] Nickolas Giordano MD [address] [place] [address] 03/18/2023 7:00 PM EST - 03/18/2023 9:47 PM EST Surgery [facility], OB Triage, Women's Lower Level 1st Floor [address] [place] [address] Nickolas Giordano MD [address] [place] [address] INDUCTION FOR VAGINAL DELIVERY Scheduled Procedures Name [...] filedocumented as of this encounter Care Teams Wet End Tester Relationship Specialty Start Date End Date Iain Ayon PA-C [address] [address] [place] [address] PCP - General Physician Transformer Assembly Supervisor 07/23/22 documented as of this encounter
--- OUTSIDE RECORDS SUMMARY | 2023-03-18 07:37 | External Medical Summary | Summary of Care ---
Author Name Unknown Organization [facility] Address [address] [place] [address] Phone [phone] Care Team Providers Care Control Valve Technician Name Role Phone Iain Ayon PA-C Primary Care Provider Reason for Visit * Reason Comments Blood Pressure Check Encounter Details Date Type Department Care Team (Late st Contact Info) Description 03/11/2023 3:45 PM EST Nurse Only Gynecology/Obstetics [place] [facility] [phone] [place], Nurse Canvas Shrinker [place] [address] [place] [address] Blood Pressure Check Allergies No known active allergiesdocumented as of this encounter (statuses as of 03/11/2023) Medications Medication Sig Dispensed Refills Start Date [...] as of this encounter (statuses as of 03/11/2023) Active Problems Problem Noted Date Diagnosed Date [...] insurance coverage and cost ([place] [address]). Patient aware not all insurances cover this [...] Supervision of high-risk , third [facility] 07/25/2022 Overview: Estimated Date of [...] as of this encounter (statuses as of 03/11/2023) Immunizations Name Administration Dates Next Due Seasonal [...] money to get more. Never true 11/13/2022 [place] Depression Scale Answer Date Recorded [place] Depression Scale Total 6 08/13/2022 The thought [...] Sign Reading Time Taken Comments Blood Pressure 132/84 03/11/2023 3:22 PM EST Pulse - - Temperature - - Respiratory Rate - - Oxygen Saturation - - Inhaled Oxygen Concentration - - Weight - - Height - - Body Mass Index - - documented in this encounter Nursing Notes * Ciera Lane CCMA - 03/11/2023 3:21 PM EST Pt presented for u/s. Informed by provider to have BP check today and Friday. Pt denies any concerns documented in this encounter Plan of Treatment Upcoming Encounters Date Type Department Care Team (Latest Contact Info) Description 03/14/2023 10:00 AM EST Nurse Only Gynecology/Obstetic s [place] [address] [place] [phone] [place], Nurse Canvas Shrinker [place] [address] [place] [address] 03/18/2023 7:00 PM EST Hospital Encounter [facility], OB Triage, Women's Lower Level 1st Floor [address] [place] [address] Nickolas Giordano MD [address] [place] [address] 03/18/2023 7:00 PM EST - 03/18/2023 9:47 PM EST Surgery [facility], OB Triage, Women's Lower Level 1st Floor [address] [place] [address] Nickolas Giordano MD [address] [place] [address] INDUCTION FOR VAGINAL DELIVERY Scheduled Procedures Name [...] filedocumented as of this encounter Care Teams Control Valve Technician Relationship Specialty Start Date End Date Iain Ayon PA-C [address] [address] [place] [phone] PCP - General Physician Microsoft Exchange Architect 07/23/22 documented as of this encounter
--- OUTSIDE RECORDS SUMMARY | 2023-03-18 07:37 | External Medical Summary | Summary of Care ---
Author Name Unknown Organization [facility] Address [address] [place] [facility] [place] [address] Phone [phone] Care Team Providers Care Maintenance Shop Laborer Name Role Phone Iain Ayon PA-C Primary Care Provider Encounter Details Date Type Department Care Team (Late st Contact Info) Description 03/06/2023 Orders Only Gynecology/Obstetics [place] 68 [facility] [place] [phone] Evelyn Roger [facility]C [facility] [phone] Allergies No known active allergiesdocumented as of [...] insurance coverage and cost ([place] [address]). Patient aware not all insurances cover this [...] 03/06/2023) Immunizations Name Administration Dates Next Due Seasonal [...] money to get more. Never true 11/13/2022 [place] Depression Scale Answer Date Recorded [place] Depression Scale Total 6 08/13/2022 The thought [...] 3:45 PM EST Office Visit Gynecology/Obstetic s [address] [phone] Evelyn Roger PA-C [address] [place] [address] 03/11/2023 3:00 PM EST Imaging Radiology, [address] [phone] 03/18/2023 7:00 PM EST Hospital Encounter [facility], OB Triage, Women's Lower Level 1st Floor [address] [facility] [address] Nickolas Giordano MD [address] [place] [address] 03/18/2023 7:00 PM EST - 03/18/2023 9:47 PM EST Surgery [facility], OB Triage, Women's Lower Level 1st Floor [address] [place] [address] Nickolas Giordano MD [address] [place] [address] INDUCTION FOR VAGINAL DELIVERY Scheduled Procedures Name Priority Associated Diagnoses Date/Ti me INDUCTION FOR VAGINAL DELIVERY 39 weeks gestation of 03/18/2023 7:00 PM EST Health Maintenance Due Date Last Done Comments Hepatitis B (1 of 3 - 3-dose series) 1990 Depression Screening 08/29/2018 08/29/2017 COVID-19 Vaccine ( season) 2022 02/16/2021, 04/21/2020, 03/31/2020 GFR 02/01/2024 03/05/2023, 01/22, 12/28/2022, Additional history exists Pap Smear 08/13/2025 08/13/2022, 07/25/2016 Diabetes Screening 01/31/2026 03/05/2023, 1 04/02/2022, 08/13/2022, Additional history exists [...] Procedure Name Priority Date/Time Associated Diagnosis Comments CHEMISTRY-OUTSIDE Routine 03/05/2023 documented in this encounter Results * (ABNORMAL) CHEMISTRY-OUTSIDE (03/05/2023) Not all results display below - see scan for full detail OUTSIDE LAB (SEE SCANNED REPORT) Comment:SEE SCAN: URPCR, CMP , HEPAT PANEL, URIC, CBCD CREATININE-OUTSID E LAB 0.85 0.6 - 1.2 MG/DL OUTSIDE LAB (SEE SCANNED REPORT) EGFR-OUTSIDE LAB 88.8 ML/MIN/1.7 3M2 OUTSIDE LAB (SEE SCANNED REPORT) POTASSIUM-OUTSIDE LAB 4.0 3.5 - 5.1 MMOL/L OUTSIDE LAB (SEE SCANNED REPORT) GLUCOSE-OUTSIDE LAB 100(H) 70 - 99 MG/DL OUTSIDE LAB (SEE SCANNED REPORT) HOURS FASTING OUTSID E LAB (SEE SCANNED REPORT) TRIGLYCERIDES-OUT SIDE LAB OUTSIDE LAB (SEE SCANNED REPORT) CHOLESTEROL-OUTSI DE LAB OUTSIDE LAB (SEE SCANNED REPORT) HDL-OUTSIDE LAB OUTS TREY LAB (SEE SCANNED REPORT) CHOL/HDL RATIO-OUTSIDE LAB OUTSIDE LA B (SEE SCANNED REPORT) LDL (CALCULATED)-OUTS TREY LAB OUTSIDE LAB (SEE SCANNED REPORT) LDL (DIRECT MEASURE)-OUTSIDE LAB OUTSIDE LAB (SEE SCANNED REPORT) HEMOGLOBIN, X8Z-HKAPOYY LAB OUTSIDE LAB (SEE SCANNED REPORT) PHOSPHORUS-OUTSID E LAB OUTSIDE LAB (SEE SCANNED REPORT) PTH-OUTSIDE LAB OUTS TREY LAB (SEE SCANNED REPORT) MICROALBUMIN RATIO-OUTSIDE LAB OUTSIDE LA B (SEE SCANNED REPORT) PROTEIN, UA-OUTSIDE LAB OUTSIDE LAB (SEE SCANNED REPORT) HEMOGLOBIN-OUTSID E LAB 11.7(L) 12.0 - 15.0 G/DL OUTSIDE LAB (SEE SCANNED REPORT) 03/05/2023 Evelyn Mccarthy PA-C LABORATOR Y OUTSIDE LAB (SEE SCANNED REPORT) documented in this encounter Care Teams Maintenance Shop Laborer Relationship Specialty Start Date End Date Iain Ayon PA-C [address] [address] [place] [address] PCP - General Physician Application Support Analyst 07/23/22 documented as of this encounter
--- OUTSIDE RECORDS SUMMARY | 2023-03-18 07:37 | External Medical Summary | Summary of Care ---
Author Name Unknown Organization [facility] Address [address] [facility] [place] [address] Phone [phone] Care Team Providers Care Business Partner Name Role Phone Iain Ayon PA-C Primary Care Provider Reason for Visit * Reason Comments Blood Pressure Check Encounter Details Date Type Department Care Team ([facility] st Contact Info) Description 03/06/2023 9:15 AM EST Office Visit Gynecology/Obstetics [place] 68 [facility] [place] [phone] Evelyn Roger PA-C 68 [facility] [place] [address] Supervision of high-risk , third trimester*; Chronic [...] insurance coverage and cost ([place] [address]). Patient aware not all insurances cover this [...] as well. Supervision of high-risk , third [facility] 07/25/2022 Overview: Estimated Date of [...] money to get more. Never true 11/13/2022 [place] Depression Scale Answer Date Recorded [place] Depression Scale Total 6 08/13/2022 The thought [...] resolve with Tylenol typically. Patient went to [facility] last night and pre-eclampsia lab work was normal. Her blood pressure was normal. Physical Exam General: alert and oriented, no acute distress Pulmonary: normal respiratory effort, no accessory muscle use. Abdomen: gravid, soft, non-tender heart rate: 130's bpm [place] Problems (from 08/06/22 to present) Problem Noted [...] 3:45 PM EST Office Visit Gynecology/Obstetic s [place] [address] [place] [phone] Evelyn Roger PA-C [address] [place] [address] 03/11/2023 3:00 PM EST Imaging Radiology, [address] [phone] 03/18/2023 7:00 PM EST Hospital Encounter [facility], OB Triage, Women's Lower Level 1st Floor [address] [place] [address] Nickolas Giordano MD [address] [place] [address] 03/18/2023 7:00 PM EST - 03/18/2023 9:47 PM EST Surgery [facility], OB Triage, Women's Lower Level 1st Floor [address] [place] [address] Nickolas Giordano MD [address] [place] [address] INDUCTION FOR VAGINAL DELIVERY Scheduled Procedures Name [...] documented in this encounter Care Teams Business Partner Relationship Specialty Start Date End Date Iain Ayon PA-C [address] [address] [place] [address] PCP - General Physician Core Drilling Supervisor 07/23/22 documented as of this encounter
--- OUTSIDE RECORDS SUMMARY | 2023-03-18 07:37 | External Medical Summary | Summary of Care ---
Author Name Unknown Organization [facility] Address [address] [place] [address] Phone [phone] Care Team Providers Care Freelance Digital Project Manager Name Role Phone Iain Ayon PA-C Primary Care Provider Reason for Visit * Reason Onset Date Comments TRIAGE 03/05/2023 Encounter Details Date Type Department Care Team (Late st Contact Info) Description 03/05/2023 Telephone [facility] Gynecology [address] [place] [address] Diamante Calderon MD [address] [place] [address] TRIAGE Allergies No known active allergiesdocumented as of [...] insurance coverage and cost ([place] [address]). Patient aware not all insurances cover this [...] counseling as well. Supervision of high-risk , [facility] 07/25/2022 Overview: Estimated Date of Delivery: [...] money to get more. Never true 11/13/2022 [place] Depression Scale Answer Date Recorded [place] Depression Scale Total 6 08/13/2022 The thought [...] encounter Miscellaneous Notes * Telephone Encounter - Diamante Calderon MD - 03/05/2023 9:16 PM EST Returned patient triage call. Patient calling and identified by name. Patient is at 37w2d. She is a CHTN on medication and was calling for BP in the 150s/90s. Patient reached Ms. Maki earlier in the evening who suggested she present to L&D. Patient is on her way to [facility] for evaluation and probable delivery. No further questions at the time of call. documented in this encounter Plan of Treatment Upcoming Encounters Date Type Department Care Team (Latest Contact Info) Description 03/10/2023 3:45 PM EST Office Visit Gynecology/Obstetic s [address] [phone] Evelyn Roger PA-C [address] [place] [address] 03/11/2023 3:00 PM EST Imaging Radiology, [place] [address] [place] [phone] 03/18/2023 7:00 PM EST Hospital Encounter OBTR GMC, OB Triage, Women's Lower Level 1st Floor [address] [place] [address] Nickolas Giordano MD [address] [place] [address] 03/18/2023 7:00 PM EST - 03/18/2023 9:47 PM EST Surgery OBTR [facility], OB Triage, Women's Lower Level 1st Floor [address] [place] [address] Nickolas Giordano MD [address] [place] [address] INDUCTION FOR VAGINAL DELIVERY Scheduled Procedures Name [...] filedocumented as of this encounter Care Teams Freelance Digital Project Manager Relationship Specialty Start Date End Date Iain Ayon PA-C 1 [facility] Daniele Felipe [facility][note 3] [place] [address] PCP - General Physician Media Relations Coordinator 07/23/22 documented as of this encounter
[2023-03-18 09:02] LABS: Hematocrit (blood only) 32.2 % (37.0-47.0); Mean Corpuscular Hemoglobin 31.2 pg (25.0-34.0); Mean Corpuscular Hgb Conc 34.2 g/dL (32.0-36.0); Mean Corpuscular Volume 91.2 fL (80.0-100.0); Mean Platelet Volume 9.4 fL (9.4-12.4); Platelet Count 245 K/uL (130-400); RDW Coefficient of Variation 12.9 % (11.5-14.5); RDW Standard Deviation 42.5 fL (36.4-46.3); Red Blood Count 3.53 M/uL (4.20-5.40); White Blood Count 8.29 K/ul (4.8-10.8)
[2023-03-18] MEDS ORDERED: LIDOCAINE 1% LOCAL 20 ML VIAL INFIL PRN (10:36)
[2023-03-18] MEDS ORDERED: OXYTOCIN 30 UNITS/NSS 30 UNITS/500 ML BAG IV PRN ×2 (10:36→20:35)
[2023-03-18] MEDS ORDERED: miSOPROStoL 50 MCG TAB PO SCH (10:45)
--- NOTE | 2023-03-18 11:56 | History & Physical Report ---
Date of Service March 18, 2023 Assessment & Plan Admission and Anticipated Discharge Date Admission Date: March 18, 2023 History of Present Illness Chief Complaint: induction of labor Primary Care Provider: NO PCP 33 F P1001 at 39.1 weeks admitted fo induction of labor at 39.1 weeks due to history of pre-eclampsia during her last . GBS is negative. Allergies Allergy/AdvReac Type Severity Reaction Status Date / Time No Known Allergies Allergy Verified 03/18/23 08:23 Home Medications Medication Instructions Recorded Confirmed Type aspirin 81 mg chewable tablet 81 mg PO DAILY 03/05/23 03/18/23 History bisacodyl 5 mg tablet,delayed 5 mg PO HS 03/05/23 03/18/23 History release (Dulcolax (bisacodyl)) ferrous sulfate 325 mg (65 mg mg 03/05/23 History iron) tablet (Iron (ferrous sulfate)) labetalol 200 mg tablet 200 mg PO BID 03/05/23 03/18/23 History [id number]-[id number]-[id number] 1 mg 1 tab PO 03/05/23 History tablet Patient History Medical History Chronic hypertension Pre-eclampsia Surgical History [place] teeth extracted Social History Smoking Status: Never smoker Second Hand Exposure: No; Hx Alcohol Use: No Hx Substance Use: No Preferred Language: Tongan Communication Ability: Effective Cart Driver Required: No Beliefs That Will Affect Care: None marital status: Current Living Situation: Family Other Information That Helps Us Care for You: No Feels Safe at Home: Yes Safety Concerns: Feels Safe At This Time OB History x1 history of pre-eclampsia last [facility] History neg Review of Systems All systems reviewed & are unremarkable except as noted in HPI & below Physical Exam Constitutional: WD/WN, vitals as above Respiratory: normal respiratory effort, lungs clear to auscultation Cardiovascular: RRR, no murmur, no edema Musculoskeletal: Extremities: extremities normal to inspection Neurologic: patellar DTR's 2+ bilat, sensation intact Psychiatric: A+Ox3, euthymic affect Genitourinary: no vaginal lesions, no adnexal mass Manual OB Exam: + cervical dilation 1 cm and 2 cm, + cervical effacement 40% and + station high OB Exam Monitor Tracing: + external FHT monitor used, + external uterine monitor used, + category I and + normal FHT variability Results & Data Vital Signs (Past 12 Hours) Vital Signs Temp Pulse Resp BP 03/18/23 11:00 18 03/18/23 11:00 36.8 C 18 03/18/23 10:35 74 143/85 H 03/18/23 07:52 36.4 C L 78 16 122/75 03/18/23 07:43 78 122/75 Code Status & VTE Plan VTE Prophylaxis Plan VTE Prophylaxis will be ordered: No
[2023-03-18] MEDS: miSOPROStoL 50 MCG TAB PO SCH ×2 (15:01→20:46)
[2023-03-18] MEDS ORDERED: BUTORPHANOL TARTRATE 1 MG/ML VIAL IV PRN (18:56)
--- NOTE | 2023-03-18 20:35 | Labor Progress Brief Note ---
Date of Service March 18, 2023 Assessment & Plan Admission and Anticipated Discharge Date Admission Date: March 18, 2023 Physical Exam Genitourinary: Manual OB Exam: + cervical dilation 4 cm, + cervical effacement 70%, + station (AROM with Amni-hook clear fluid) -2 and + amniotic fluid clear OB Exam Monitor Tracing: + external FHT monitor used, + external uterine monitor used, + category I and + normal FHT variability Results & Data Vital Signs (Past 12 Hours) Vital Signs Temp Pulse Resp BP 03/18/23 19:45 80 144/77 H 03/18/23 19:34 94 H 149/72 H 03/18/23 19:33 20 03/18/23 19:33 36.4 C L 20 03/18/23 15:04 74 132/80 03/18/23 15:00 18 03/18/23 15:00 36.4 C L 18 03/18/23 12:44 70 134/75 03/18/23 12:42 20 03/18/23 12:42 36.7 C 20 03/18/23 11:00 18 03/18/23 11:00 36.8 C 18 03/18/23 10:35 74 143/85 H
[2023-03-18] MEDS: LACTATED RINGER'S 1,000 ML IV PRN ×2 (20:49→23:31)
[2023-03-18] MEDS ORDERED: LABETALOL HCL 200 MG TAB PO SCH (21:00)
[2023-03-18] MEDS ORDERED: fentaNYL citrate PF 100 MCG/2 ML VIAL ONE (21:18)
[2023-03-18] MEDS ORDERED: ePHEDrine sulfate 50 MG/ML AMP ONE (21:19)
[2023-03-18] MEDS ORDERED: fentANYL 2 MCG/ML BUPIVacaine 0.125%-NSS 100ML BAG ONE (21:19)
[2023-03-18] MEDS ORDERED: BUPIVACAINE 0.25% PF 30 ML VIAL ONE (21:19)
[2023-03-18] MEDS ORDERED: SODIUM CHLORIDE 0.9% PF INJ 10 ML VIAL ONE (21:19)
[2023-03-18] MEDS ORDERED: LIDOCAINE 2%/EPINEPHRINE 1:200,000 20 ML PF ONE (21:19)
[2023-03-18] MEDS ORDERED: BUPIVACAINE 0.25% PF 30 ML VIAL EPI PRN (22:21)
[2023-03-18] MEDS ORDERED: LIDOCAINE 2% MPF LOCAL 5 ML VIAL EPI PRN (22:21)
[2023-03-18] MEDS ORDERED: ONDANSETRON INJ 2 MG/ML 2 ML VIAL IV PRN (22:21)
[2023-03-18] MEDS ORDERED: LIDOCAINE 2%/EPINEPHRINE 1:200,000 20 ML PF EPI STA (22:21)
[2023-03-18] MEDS ORDERED: BUPIVACAINE 0.25% PF 30 ML VIAL EPI STA (22:21)
[2023-03-18] MEDS ORDERED: ePHEDrine sulfate 50 MG/ML AMP IV PRN (22:21)
[2023-03-18] MEDS ORDERED: SODIUM CHLORIDE 0.9% PF INJ 10 ML VIAL EPI STA (22:21)
[2023-03-18] MEDS ORDERED: ROPIVACAINE 0.5% PF 5 MG/ML 20 ML VIAL EPI PRN (22:21)
[2023-03-18] MEDS ORDERED: NALOXONE HCL 0.4 MG/1 ML VIAL/CARP IV PRN (22:21)
[2023-03-18] MEDS ORDERED: fentaNYL citrate PF 100 MCG/2 ML VIAL EPI PRN (22:21)
[2023-03-18] MEDS ORDERED: SODIUM CHLORIDE 0.9% PF INJ 10 ML VIAL EPI PRN (22:21)
[2023-03-18] MEDS ORDERED: fentaNYL citrate PF 100 MCG/2 ML VIAL EPI STA (22:21)
[2023-03-18] MEDS ORDERED: diphenhydrAMINE 50 MG/ML VIAL IV PRN (22:21)
[2023-03-18] MEDS ORDERED: fentANYL 2 MCG/ML BUPIVacaine 0.125%-NSS 100ML BAG EPI PRN (22:21)
[2023-03-18] MEDS ORDERED: NALBUPHINE HCL 5 MG in SYRINGE 0 ML IV PRN (22:21)
[2023-03-18] MEDS ORDERED: NALOXONE HCL 1 MG in SODIUM CHLORIDE 0.9% 1,000 ML IV PRN (22:21)
--- NOTE | 2023-03-18 22:21 | Anesthesiology Consultation ---
Date of Service March 18, 2023 Assessment & Plan Chart Review Chart Review: Patient NOT seen in Pre Admission Testing and Acceptable Risk for Labor Epidural Consults Requested none ASA ASA2 Proposed Anesthesia Anesthesia Type: Labor Epidural Risk / Benefits Reviewed With: PT / POA / Parent / Guardian, Accepts Plan and Informed Consent Obtained History Height/Weight Height: 5 ft 2 in Weight: 94.347 kg Allergies Allergy/AdvReac Type Severity Reaction Status Date / Time No Known Allergies Allergy Verified 03/18/23 08:23 Medications Home Medications Medication Instructions Recorded Confirmed Last Taken aspirin 81 mg chewable tablet 81 mg PO DAILY 03/05/23 03/18/23 03/17/23 21:00 bisacodyl 5 mg tablet,delayed 5 mg PO HS 03/05/23 03/18/23 3 Days Ago release (Dulcolax (bisacodyl)) ~03/15/23 ferrous sulfate 325 mg (65 mg mg 03/05/23 03/18/23 06:00 iron) tablet (Iron (ferrous sulfate)) labetalol 200 mg tablet 200 mg PO BID 03/05/23 03/18/23 03/18/23 06:00 [id number] 1 mg 1 tab PO 03/05/23 03/17/23 21:00 tablet Active Medications Generic Name Dose Route Start Last Admin Trade Name Freq PRN Reason Stop Dose Admin Lactated Ringer's 1,000 mls @ 125 mls/hr 03/18/23 10:36 03/18/23 21:50 Lr IV 03/20/23 10:35 125 mls/hr .Q8H PRN Infusion L&D Protocol Protocol Oxytocin 30 units in 500 mls @ 1 mls/hr 03/18/23 20:35 03/18/23 22:20 Pitocin 30 Units/Nss IV 03/20/23 20:34 0.18 units/hr .Q24H PRN 3 mls/hr Labor Induction/Augmentation Titration Protocol 0.06 UNITS/HR Labetalol HCl 200 mg 03/18/23 21:00 03/18/23 21:15 Labetalol Hcl 200 Mg Tab PO 04/17/23 20:59 200 mg BID DENNIS Administration Past Medical History Medical History Chronic hypertension Pre-eclampsia Exercise / Class Metabolic Activity II 4-5 Yardwork/Stairs/Walk up hill Past Surgical History Surgical History [place] teeth extracted Past Anesthesia History No Hx of Anesthesia Complications and No Family Hx of Anesthesia Complications History of PONV No Hx of PONV and No Hx of Motion Sickness Social History Smoking Status: Never smoker Hx Alcohol Use: No Hx Substance Use: No substance use type: does not use Physical Exam Vital Signs Last Vital Signs Temp 36.4 C L 03/18/23 20:40 Pulse 73 03/18/23 22:19 Resp 18 03/18/23 22:15 BP 107/61 03/18/23 22:19 Pulse Ox 97 03/18/23 22:15 ENMT Mouth: no dentition abnormality Thyromental Distance: > or= 3.5 Finger Breadths Mallampati Class: II Neck normal visual inspection Respiratory normal respiratory effort Auscultation: lungs clear to auscultation bilaterally Cardiovascular Rate/Rhythm: regular rate and regular rhythm Psychiatric Orientation: alert Testing Laboratory Results 03/18/23 08:53 Blood Type O Positive 03/18/23 08:51 Antibody Screen NEGATIVE 03/18/23 08:51
--- NOTE | 2023-03-19 03:00 | Delivery Summary ---
Vaginal Delivery Summary Date of Service March 19, 2023 Vaginal Delivery Summary live male JAMIE over intact perineum with delayed cord clamping and Apgars 8/9 weight pending. Cord blood obtained followed by spontaneous delivery of intact perineum. No tears. EBL 150 ml. Bladder drained for 150 ml. urine. Final sponge and instrument count are correct. Mom and baby stable.
[2023-03-19] MEDS ORDERED: ACETAMINOPHEN 325 MG TAB PO PRN (03:02)
[2023-03-19] MEDS ORDERED: DIPHTHERIA/TETANUS/PERTUSSIS Vaccine (Tdap, Age 7+yrs) 0.5mL SYR/VL IM ONE (03:02)
[2023-03-19] MEDS ORDERED: BENZOCAINE 20% SPRY 85 APPLN/85 GM CAN EXT PRN (03:02)
[2023-03-19] MEDS ORDERED: HYDROCORTISONE ACETATE 25 MG SUPP PR PRN (03:02)
[2023-03-19] MEDS ORDERED: OXYTOCIN 30 UNITS/NSS 30 UNITS/500 ML BAG IV PRN (03:02)
[2023-03-19] MEDS: IBUPROFEN 600 MG TAB PO PRN ×3 (04:45→19:37)
[2023-03-19] MEDS: FERROUS SULFATE 325 MG TAB PO SCH (08:30)
[2023-03-19] MEDS: PRENATAL VITAMIN 1 TAB PO SCH (08:30)
[2023-03-19] MEDS: DOCUSATE SODIUM 100 MG CAP PO SCH ×2 (08:30→19:37)
[2023-03-19] MEDS: LABETALOL HCL 200 MG TAB PO SCH ×2 (08:31→19:37)
--- NOTE | 2023-03-19 10:04 | Anesthesia Procedure Note ---
Date of Service March 19, 2023 Anesthesia Post Epidural Note Vital Signs Vital Signs: Temp Pulse Resp BP Pulse Ox O2 Del Method 36.7 C 69 20 142/91 H 97 Room Air 03/19/23 08:00 03/19/23 08:00 03/19/23 08:00 03/19/23 08:00 03/19/23 08:00 03/19/23 08:00 Pain Intensity Bilateral Abdomen: Pain Intensity: 3 Notes Mental Status: alert / awake / arousable and participated in evaluation Patient Amnestic to Procedure: No Nausea / Vomiting: adequately controlled Pain: adequately controlled Airway Patency, RR, SpO2: stable & adequate BP & HR: stable & adequate Hydration State: stable & adequate Neuraxial Anesthesia: was administered and sensory block resolved Anesthetic Complications: no major complications apparent and Pt Satisfied with anesthetic care Epidural: Removed without complications and With tip intact
[2023-03-19] MEDS ORDERED: bisacodyL 5 MG TABEC PO SCH (21:00)
[2023-03-19 21:06] VITALS: RESP 18
[2023-03-20 00:54] VITALS: O2SAT 95
[2023-03-20] MEDS: IBUPROFEN 600 MG TAB PO PRN ×2 (04:54→08:47)
[2023-03-20 06:20] LABS: Hematocrit (blood only) 30.5 % (37.0-47.0); Hemoglobin 10.5 g/dl (12.0-16.0); Mean Corpuscular Hemoglobin 31.4 pg (25.0-34.0); Mean Corpuscular Hgb Conc 34.4 g/dL (32.0-36.0); Mean Corpuscular Volume 91.3 fL (80.0-100.0); Mean Platelet Volume 9.5 fL (9.4-12.4); Platelet Count 242 K/uL (130-400); RDW Coefficient of Variation 13.1 % (11.5-14.5); RDW Standard Deviation 43.2 fL (36.4-46.3); Red Blood Count 3.34 M/uL (4.20-5.40); White Blood Count 10.58 K/ul (4.8-10.8)
[2023-03-20] MEDS: LABETALOL HCL 200 MG TAB PO SCH (08:35)
[2023-03-20] MEDS: PRENATAL VITAMIN 1 TAB PO SCH (08:36)
[2023-03-20] MEDS: DOCUSATE SODIUM 100 MG CAP PO SCH (08:36)
[2023-03-20] MEDS: FERROUS SULFATE 325 MG TAB PO SCH (08:37)
[2023-03-20 09:03] VITALS: BP 143/88; PULSE 97; TEMP 97.3
--- NOTE | 2023-03-20 10:15 | Obstetrical Progress Note ---
Date of Service March 20, 2023 Subjective Ambulation: ambulating normally Voiding: no voiding problems Passing Gas:: Yes Diet Tolerance:: regular diet Lochia:: Small Feeding Type:: breast feeding Current Pain Level(1-10): 0 doing well. plans to go home today Physical Exam Constitutional WD/WN, vitals as above Musculoskeletal Extremities: extremities normal to inspection Skin no rashes, warm and dry Neurologic patellar DTR's 2+ bilat, sensation intact Psychiatric A+Ox3, euthymic affect Results & Data Vital Signs (Past 12 Hours) Vital Signs Temp Pulse Resp BP Pulse Ox O2 Del Method 03/20/23 08:30 36.3 C L 97 H 18 143/88 H Room Air 03/20/23 00:35 36.5 C 79 18 142/93 H 95 Room Air Laboratory Results 03/18/23 03/18/23 03/20/23 08:51 08:53 05:49 WBC 8.29 10.58 RBC 3.53 L 3.34 L Hgb 11.0 L 10.5 L Hct 32.2 L 30.5 L MCV 91.2 91.3 MCH 31.2 31.4 MCHC 34.2 34.4 RDW Std Deviation 42.5 43.2 RDW Coeff of Reid 12.9 13.1 Plt Count 245 242 MPV 9.4 9.5 Blood Type O Positive Antibody Screen NEGATIVE
[2023-03-20] MEDS ORDERED: bisacodyL 5 MG TABEC PO SCH (20:00)
[2023-03-21] MEDS ORDERED: bisacodyL 10 MG SUPP PR PRN
== END 2023-03-20 11:10 | disposition home or self-care (01) | DRG 807 ==
LOC: 4S1 07:30 → 4E2 03-19 05:38
DX: Z3A.39 39 weeks gestation of pregnancy; Z87.59 Personal history of other complications of pregnancy, childbirth and the puerperium; Z79.899 Other long term (current) drug therapy; Z79.82 Long term (current) use of aspirin; O10.92 Unspecified pre-existing hypertension complicating childbirth; Z37.0 Single live birth

== ENCOUNTER 2023-03-21 16:44 | Inpatient (IN) ==
--- NOTE | 2023-03-21 16:57 | ED Triage Note ---
Date of Service March 21, 2023 Provider in Triage Author: Dennis Jonas History of Present Illness This patient was briefly evaluated while in triage. An abbreviated physical exam was performed. This patient is a 33-year-old Female who presents to the ED for evaluation of fe kia 104.3. Just gave 2 days ago via . Fever started last night and was low grade. Pain in back and lower left side. Physical Exam Limited Triage Exam: VITALS: Vitals are noted on the nurse's note and reviewed by myself. Vital signs stable. GENERAL: Well-developed, well-nourished, white female. HEART: Regular rate and rhythm without murmurs gallops or rubs. LUNGS: Clear to auscultation bilaterally without wheezes, rales or rhonchi. No retractions or accessory muscle use. NEURO: Patient was alert and oriented to person place and time. CN II through XII grossly intact. Initial orders for labs and / or imaging were placed and patient was placed in the waiting area until a bed is available. Please see further documentation for the full ED course. MDM / Impression Impression Impression: fever, Abdominal pain, Hypokalemia, Hypomagnesemia Impression: Abdominal pain Qualifiers: Abdominal location: lower abdomen, unspecified Qualified Code(s): R10.30 - Lower abdominal pain, unspecified
[2023-03-21] MEDS ORDERED: SODIUM CHLORIDE 0.9% 1,000 ML IV SCH (17:00)
--- NOTE | 2023-03-21 17:29 | XRay Report ---
XR chest 1V not portable CLINICAL HISTORY: Sepsis TECHNIQUE: Single frontal radiograph of the chest was obtained. Comparison: None available at the time of this dictation. FINDINGS: No lines and tubes are seen. The cardiomediastinal silhouette is normal. The lungs are clear. No evid ence of pleural effusion or pneumothorax. IMPRESSION: No acute abnormalities and in particular no radiographic evidence of pneumonia. ACT 112: Negative or not required by law. Electronically signed by: Ian Yoo M.D. 03/21/2023 5:27 PM
[2023-03-21] MEDS ORDERED: ONDANSETRON INJ 2 MG/ML 2 ML VIAL IV STA (19:35)
[2023-03-21] MEDS ORDERED: PIPERACILLIN/TAZOBACTAM 4.5 GM/100 ML BAG IV ONE (19:35)
[2023-03-21] MEDS ORDERED: MoRPHine SULFATE 4 MG/ML 1 ML CARP\\VIAL IV STA (19:35)
--- NOTE | 2023-03-21 19:38 | Emergency Department Note ---
Impression & Plan fever, Abdominal pain, Hypokalemia, Hypomagnesemia ED Provider Note NAME: SOLEDAD ODOM AGE: 33 SEX: F : 1990 ARRIVES VIA: Walk-In INFORMANT: Patient, ED PROVIDER(S): Bobby Tam DO CHIEF COMPLAINT: Abdominal pain HPI: The patient is a 33-year-old female who presented to the emergency department for an evaluation of abdominal pain. The patient notices left-sided pelvic pain which began over the last 24 hours. She is 1 day status post vaginal delivery. She was full-term. She states that her course was normal. She notices no cough or runny nose. She does notice some lower back pain as well. The patient is been trying [id number] medication with only minimal relief of her symptoms. ROS: See above HPI for pertinent positives & negatives. A total of 10 systems reviewed and were otherwise negative. PAST MEDICAL HISTORY: See Below PAST SURGICAL HISTORY: See Below FAMILY HISTORY: See Below SOCIAL HISTORY: See Below HOME MEDICATIONS: See Below ALLERGIES: See Below VITALS: See Below PHYSICAL EXAMINATION: GENERAL: The patient is awake and alert. The patient is somewhat anxious and uncomfortable. EYES: The conjunctivae are clear. The pupils are round and reactive. EARS, NOSE, MOUTH AND THROAT: The nose is without any evidence of any deformity. NECK: The neck is nontender and supple. RESPIRATORY: Normal respiratory effort is noted there is no evidence of wheezing rhonchi or rales CARDIOVASCULAR: Regular rate and rhythm noted there no murmurs rubs or gallops normal S1 normal S2. GASTROINTESTINAL: The abdomen is soft. There is left-sided tenderness palpation which is moderate. There is guarding the left lower quadrant BACK: No midline tenderness or or step-off noted range of motion in flexion extension as well as rotation no signs of muscle spasm noted MUSCULOSKELETAL/EXTREMITIES: There is no evidence of gross deformity full range of motion is noted in the hips and shoulders. SKIN: There is no obvious evidence of any rash. There are no petechiae, pallor or cyanosis noted. NEUROLOGIC: Patient is awake alert and oriented x3 MEDICAL DECISION MAKING: The patient is a 33-year-old female who presented to the emergency department for an evaluation of abdominal pain and fever. The patient is by 1 day. The patient has had some difficulty urinating ever since her epidural. The patient was neurologically intact. She did have some pedal edema but this was trace pedal edema. Blood pressure was acceptable. I discussed patient's laboratory and radiographic studies with her. She was treated with IV fluids as well as IV antibiotics in emergency department. I did feel that her lower abdominal tenderness could be consistent with endometritis but this is quite early to develop this. She had no significant discharge but had bleeding which was consistent with a recent state. I discussed patient's condition with the on-call POLYMERIZATION SUPERVISOR physician. They have agreed to evaluate the patient in the emergency department for further management and disposition. Triage Nursing notes reviewed. Prior medical records reviewed Vital Signs: reviewed and remarkable for fever and tachycardia. Differential diagnosis: Ovarian torsion, endometriosis, ectopic , pelvic pain, UTI, cystitis, appendicitis, diverticulitis, mesenteric ischemia, PID, inflammatory bowel disease, renal colic, Bartholin's abscess, cervicitis, as well as other pathologies. ER treatment provided: See below Diagnostics interpreted by me: ECG: EKG was obtained in the emergency department. My interpretation is sinus tachycardia at 119 bpm. There was no ectopy. Diffuse ST depressions were noted. No previous tracing was available. Cardiac Monitoring: An order was placed for continuous cardiac monitoring. The monitor shows a rate of 120 bpm with sinus tachycardia. Laboratory studies: As stated above and show below. Imaging studies: See below. Radiographic imaging was reviewed by myself Consultation(s): I discussed this case with Dr. Pond who is on-call for [facility] POLYMERIZATION SUPERVISOR. Past Med/Surg History Medical History Chronic hypertension Pre-eclampsia Surgical History [place] teeth extracted Social History Smoking Status: Never smoker Second Hand Exposure: No; Hx Alcohol Use: No Hx Substance Use: No Preferred Language: Guamanian Communication Ability: Effective Selling Manager Required: No Beliefs That Will Affect Care: None marital status: Current Living Situation: Family Other Information That Helps Us Care for You: No Feels Safe at Home: Yes Safety Concerns: Feels Safe At This Time Assistive Devices: Glasses Allergies Allergies Allergy/AdvReac Type Severity Reaction Status Date / Time No Known Allergies Allergy Verified 12/29/23 22:20 Home Meds Home Medications Medication Instructions Recorded Confirmed bisacodyl 5 mg tablet,delayed 5 mg PO HS 03/05/23 03/21/23 release (Dulcolax (bisacodyl)) ferrous sulfate 325 mg (65 mg 325 mg PO DAILY 03/05/23 03/21/23 iron) tablet (Iron (ferrous sulfate)) labetalol 200 mg tablet 200 mg PO BID 03/05/23 03/21/23 [id number] 1 mg 1 tab PO DAILY 03/05/23 03/21/23 tablet Previous Rx's Medication Instructions Recorded ibuprofen 600 mg tablet 600 mg PO Q6H PRN fever or pain 03/20/23 #30 tabs Results & Data (ED) Vital Signs Vital Signs - 24 hr 03/21/23 16:56 03/21/23 20:22 03/21/23 20:23 Temperature 37.4 C Temperature Source Oral Pulse Rate 128 H 117 H 116 H Pulse Rate [Bilateral] Pulse Rate from SpO2 Sensor 116 H Pulse Rhythm Regular Pulse Strength Normal Respiratory Rate 20 19 Respiratory Effort / Characteristics Non-Labored Spontaneous Respiratory Depth Normal Respiratory Pattern Regular Blood Pressure 119/64 Blood Pressure [Right Arm] Blood Pressure Mean 82 Blood Pressure Mean [Right Arm] Blood Pressure Position Sitting Pulse Oximetry 96 94 Oxygen Delivery Method Room Air Sepsis Recent Fever Within 48 Hours Yes Sepsis New/Unexplained Change in Mental Status N/A Sepsis Action Taken by Nursing No Action Required 03/21/23 20:40 03/21/23 20:45 03/21/23 20:45 Temperature Temperature Source Pulse Rate 130 H 121 H Pulse Rate [Bilateral] Pulse Rate from SpO2 Sensor 121 H Pulse Rhythm Pulse Strength Respiratory Rate 17 22 Respiratory Effort / Characteristics Respiratory Depth Respiratory Pattern Blood Pressure 133/90 Blood Pressure [Right Arm] Blood Pressure Mean 110 Blood Pressure Mean [Right Arm] Blood Pressure Position Pulse Oximetry 99 Oxygen Delivery Method Sepsis Recent Fever Within 48 Hours Sepsis New/Unexplained Change in Mental Status Sepsis Action Taken by Nursing 03/21/23 21:00 03/21/23 21:00 03/21/23 21:01 Temperature Temperature Source Pulse Rate 120 H 121 H Pulse Rate [Bilateral] 118 H Pulse Rate from SpO2 Sensor 122 H 121 H Pulse Rhythm Pulse Strength Respiratory Rate 18 22 24 Respiratory Effort / Characteristics Respiratory Depth Respiratory Pattern Blood Pressure Blood Pressure [Right Arm] 135/83 Blood Pressure Mean Blood Pressure Mean [Right Arm] 100 Blood Pressure Position Pulse Oximetry 99 98 98 Oxygen Delivery Method Room Air Sepsis Recent Fever Within 48 Hours Sepsis New/Unexplained Change in Mental Status Sepsis Action Taken by Nursing 03/21/23 21:01 03/21/23 21:15 03/21/23 21:15 Temperature Temperature Source Pulse Rate 118 H Pulse Rate [Bilateral] Pulse Rate from SpO2 Sensor 118 H Pulse Rhythm Pulse Strength Respiratory Rate 20 Respiratory Effort / Characteristics Respiratory Depth Respiratory Pattern Blood Pressure 135/83 136/81 Blood Pressure [Right Arm] Blood Pressure Mean 91 98 Blood Pressure Mean [Right Arm] Blood Pressure Position Pulse Oximetry 98 Oxygen Delivery Method Sepsis Recent Fever Within 48 Hours Sepsis New/Unexplained Change in Mental Status Sepsis Action Taken by Nursing 03/21/23 21:30 03/21/23 21:30 03/21/23 21:30 Temperature Temperature Source Pulse Rate 120 H Pulse Rate [Bilateral] 122 H Pulse Rate from SpO2 Sensor 121 H Pulse Rhythm Pulse Strength Respiratory Rate 30 H 27 H Respiratory Effort / Characteristics Respiratory Depth Respiratory Pattern Blood Pressure 137/98 Blood Pressure [Right Arm] 137/98 Blood Pressure Mean 115 Blood Pressure Mean [Right Arm] 111 Blood Pressure Position Pulse Oximetry 98 98 Oxygen Delivery Method Room Air Sepsis Recent Fever Within 48 Hours Sepsis New/Unexplained Change in Mental Status Sepsis Action Taken by Nursing 03/21/23 21:33 03/21/23 21:33 03/21/23 21:41 Temperature Temperature Source Pulse Rate 125 H Pulse Rate [Bilateral] Pulse Rate from SpO2 Sensor 125 H Pulse Rhythm Pulse Strength Respiratory Rate 22 Respiratory Effort / Characteristics Respiratory Depth Respiratory Pattern Blood Pressure 145/94 H Blood Pressure [Right Arm] Blood Pressure Mean 114 Blood Pressure Mean [Right Arm] Blood Pressure Position Pulse Oximetry 98 97 Oxygen Delivery Method Room Air Sepsis Recent Fever Within 48 Hours Sepsis New/Unexplained Change in Mental Status Sepsis Action Taken by Nursing 03/21/23 21:45 03/21/23 21:45 03/21/23 22:00 Temperature Temperature Source Pulse Rate 127 H 132 H Pulse Rate [Bilateral] Pulse Rate from SpO2 Sensor 126 H 138 H Pulse Rhythm Pulse Strength Respiratory Rate 24 29 H Respiratory Effort / Characteristics Respiratory Depth Respiratory Pattern Blood Pressure 142/87 H Blood Pressure [Right Arm] Blood Pressure Mean 93 Blood Pressure Mean [Right Arm] Blood Pressure Position Pulse Oximetry 98 97 Oxygen Delivery Method Sepsis Recent Fever Within 48 Hours Sepsis New/Unexplained Change in Mental Status Sepsis Action Taken by Nursing 03/21/23 22:00 03/21/23 22:01 03/21/23 22:01 Temperature 37.5 C Temperature Source Oral Pulse Rate 136 H Pulse Rate [Bilateral] Pulse Rate from SpO2 Sensor 136 H Pulse Rhythm Pulse Strength Respiratory Rate 20 Respiratory Effort / Characteristics Respiratory Depth Respiratory Pattern Blood Pressure 134/109 H Blood Pressure [Right Arm] Blood Pressure Mean 114 Blood Pressure Mean [Right Arm] Blood Pressure Position Pulse Oximetry 97 Oxygen Delivery Method Sepsis Recent Fever Within 48 Hours Sepsis New/Unexplained Change in Mental Status Sepsis Action Taken by Nursing 03/21/23 22:07 03/21/23 22:07 03/21/23 22:15 Temperature Temperature Source Pulse Rate 125 H 126 H Pulse Rate [Bilateral] Pulse Rate from SpO2 Sensor 126 H 127 H Pulse Rhythm Pulse Strength Respiratory Rate 29 H 26 H Respiratory Effort / Characteristics Respiratory Depth Respiratory Pattern Blood Pressure 143/92 H Blood Pressure [Right Arm] Blood Pressure Mean 111 Blood Pressure Mean [Right Arm] Blood Pressure Position Pulse Oximetry 96 98 Oxygen Delivery Method Sepsis Recent Fever Within 48 Hours Sepsis New/Unexplained Change in Mental Status Sepsis Action Taken by Nursing 03/21/23 22:15 03/21/23 23:00 03/21/23 23:00 Temperature Temperature Source Pulse Rate 136 H Pulse Rate [Bilateral] Pulse Rate from SpO2 Sensor Pulse Rhythm Pulse Strength Respiratory Rate 11 L Respiratory Effort / Characteristics Respiratory Depth Respiratory Pattern Blood Pressure 148/93 H 135/88 Blood Pressure [Right Arm] Blood Pressure Mean 113 100 Blood Pressure Mean [Right Arm] Blood Pressure Position Pulse Oximetry Oxygen Delivery Method Sepsis Recent Fever Within 48 Hours Sepsis New/Unexplained Change in Mental Status Sepsis Action Taken by Assisted Medications Current Medication List: was personally reviewed by me Laboratory Data Attestation: I reviewed the patient's lab results. 03/22/23 05:04 03/22/23 05:04 Lab Results 03/21/23 03/21/23 Range/Units 20:12 22:00 WBC 13.48 H (4.8-10.8) K/ul RBC 3.69 L (4.20-5.40) M/uL Hgb 11.4 L (12.0-16.0) g/dl Hct 34.0 L (37.0-47.0) % MCV 92.1 (80.0-100.0) fL MCH 30.9 (25.0-34.0) pg MCHC 33.5 (32.0-36.0) g/dL RDW Std Deviation 43.8 (36.4-46.3) fL RDW Coeff of Reid 13.1 (11.5-14.5) % Plt Count 226 (130-400) K/uL MPV 9.1 L (9.4-12.4) fL Immature Gran % (Auto) 0.5 % Neut % (Auto) 94.8 % Lymph % (Auto) 1.8 % Williams % (Auto) 2.7 % Eos % (Auto) 0.1 % Baso % (Auto) 0.1 % Neut # (Auto) 12.76 H (1.40-6.50) K/uL Lymph # (Auto) 0.24 L (1.20-3.40) K/uL Williams # (Auto) 0.37 (0.11-0.59) K/uL Eos # (Auto) 0.02 (0.00-0.50) K/uL Baso # (Auto) 0.02 (0.00-0.20) K/uL Immature Gran # (Auto) 0.07 (0.01-0.20) K/uL Sodium 135 L (136-145) mmol/L Potassium 3.3 L (3.5-5.1) mmol/L Chloride 101 (98-107) mmol/L Carbon Dioxide 24 (21-32) mmol/L Anion Gap 10 (3-11) BUN 12 (6-23) mg/dl Creatinine 0.83 (0.6-1.2) mg/dl Est Cr Clr Drug Dosing 101.0 ml/min Est GFR ( Amer) 105.9 ml/min Est GFR (Non-Af Amer) 91.4 ml/min BUN/Creatinine Ratio 14.5 (10-20) Glucose 97 (70-99(Fasting)) mg/dl Lactate 1.4 (0.4-2.0) mmol/L Calcium 9.0 (8.6-10.3) mg/dl Magnesium 1.5 L (1.7-2.4) mg/dl Total Bilirubin 0.6 (0.2-1.0) mg/dl Direct Bilirubin 0.2 (0-0.2) mg/dl AST 22 (13-39) U/L ALT 20 (7-52) U/L Alkaline Phosphatase 75 (34-104) U/L Troponin I High Sens 15.8 H (0-14) pg/ml Total Protein 6.8 (6.0-8.3) gm/dl Albumin 3.5 (3.4-5.0) gm/dl Procalcitonin 2.04 H (0-0.5) ng/ml Urine Color Yellow Urine Appearance Clear (Clear) Urine pH 6.0 (4.5-7.5) Ur Specific Mccaskill > 1.045 H (1.000-1.030) Urine Protein Negative (Negative) Urine Glucose (UA) Negative (Negative) Urine Ketones 1+ H (Negative) Urine Blood 1+ H (Negative) Urine Nitrite Negative (Negative) Urine Bilirubin Negative (Negative) Urine Urobilinogen Negative (Negative) Ur Leukocyte Esterase Trace H (Negative) Urine WBC (Auto) 5-10 H (0-5) /hpf Urine RBC (Auto) 0-4 (0-4) /hpf U Hyaline Cast (Auto) 1-5 (0-5) /lpf U Epithel Cells (Auto) >30 H (0-5) /lpf Urine Bacteria (Auto) Negative (Negative) Ur Renal Epithelial Cell 0-5 (0-5) /lpf Adenovirus (PCR) Not Detected (NotDetected) B. pertussis DNA (PCR) Not Detected (NotDetected) B.parapertussis DNA PCR Not Detected (NotDetected) C. pneumoniae DNA (PCR) Not Detected (NotDetected) Coronavirus OC43 (PCR) Not Detected (NotDetected) Coronavirus HKU1 (PCR) Not Detected (NotDetected) Coronavirus 229E (PCR) Not Detected (NotDetected) SARS-CoV-2 (PCR) Not Detected (NotDetected) Coronavirus NL63 (PCR) Not Detected (NotDetected) Human Metapneumovir PCR Not Detected (NotDetected) Influenza Type A (PCR) Not Detected (NotDetected) Influenza Type B (PCR) Not Detected (NotDetected) M. pneumoniae (PCR) Not Detected (NotDetected) Parainfluenza 1 (PCR) Not Detected (NotDetected) Parainfluenza 2 (PCR) Not Detected (NotDetected) Parainfluenza 3 (PCR) Not Detected (NotDetected) Parainfluenza 4 (PCR) Not Detected (NotDetected) RSV (PCR) Not Detected (NotDetected) Entero/Rhino (PCR) Not Detected (NotDetected) Administered Medications Clindamycin Phosphate (Cleocin/D5w) 900 mg in 50 mls @ 100 mls/hr IV Q8H [facility] Stop: 03/31/23 22:59 Last Infusion: 03/22/23 00:41 Dose: Infused Documented By: Admin: 03/21/23 23:43 Dose: 100 mls/hr Documented By: PAM Lactated Ringer's (Lr) 1,000 mls @ 125 mls/hr IV .Q8H [facility] Stop: 04/20/23 23:14 Last Admin: 03/22/23 00:42 Dose: 125 mls/hr Documented By: PAM Morphine Sulfate (Morphine Sulfate 4 Mg/Ml 1 Ml Carp\Vial) 4 mg IV Q30M PRN PRN Reason: Pain Stop: 04/04/23 19:34 Last Admin: 03/22/23 05:04 Dose: 4 mg Documented By: Admin: 03/22/23 01:11 Dose: 4 mg Documented By: Admin: 03/21/23 21:22 Dose: 4 mg Documented By: ALEXANDER Discontinued Medications Sodium Chloride (Nss) 1,000 mls @ 999 mls/hr IV .Q1H1M [facility] Stop: 03/21/23 18:00 Last Infusion: 03/21/23 22:41 Dose: Infused Documented By: Admin: 03/21/23 20:17 Dose: 999 mls/hr Documented By: FARA Piperacillin Sod/Tazobactam Sod (Zosyn) 4.5 gm in 100 mls @ 200 mls/hr IV NOW ONE Stop: 03/21/23 20:04 Last Infusion: 03/21/23 22:41 Dose: Infused Documented By: Admin: 03/21/23 21:22 Dose: 200 mls/hr Documented By: ALEXANDER Magnesium Sulfate/Dextrose (Magnesium Sulfate / D5w) 1 gm in 100 mls @ 100 mls/hr IV NOW STA Stop: 03/21/23 22:20 Last Infusion: 03/21/23 22:41 Dose: Infused Documented By: Admin: 03/21/23 21:30 Dose: 100 mls/hr Documented By: ALEXANDER Potassium Chloride (K Gianfranco / Wtr) 10 meq in 100 mls @ 100 mls/hr IV ONE ONE Stop: 03/21/23 22:20 Last Infusion: 03/22/23 00:42 Dose: Infused Documented By: Admin: 03/21/23 23:08 Dose: 100 mls/hr Documented By: ALEXANDER Gentamicin Sulfate 460 mg/ (Dextrose) 111.5 mls @ 100 mls/hr IV ONCE ONE Stop: 03/22/23 00:36 Last Infusion: 03/22/23 01:53 Dose: Infused Documented By: Admin: 03/22/23 00:42 Dose: 100 mls/hr Documented By: PAM Ibuprofen (Ibuprofen 600 Mg Tab) 600 mg PO Q8H [facility] Stop: 04/21/23 00:00 Last Admin: 03/21/23 23:47 Dose: 600 mg Documented By: PAM Ioversol (Optiray 320 500ml) 84 ml IV ONCE ONE Stop: 03/21/23 20:35 Last Admin: 03/21/23 20:34 Dose: 84 ml Documented By: MEHRDAD Labetalol HCl (Labetalol Hcl 200 Mg Tab) 200 mg PO BID [facility] Stop: 04/20/23 22:49 Last Admin: 03/21/23 23:40 Dose: 200 mg Documented By: PAM Morphine Sulfate (Morphine Sulfate 4 Mg/Ml 1 Ml Carp\Vial) 4 mg IV NOW STA Stop: 03/21/23 19:36 Last Admin: 03/21/23 20:16 Dose: 4 mg Documented By: FARA Ondansetron HCl (Ondansetron Inj 2 Mg/Ml 2 Ml Vial) 4 mg IV NOW STA Stop: 03/21/23 19:36 Last Admin: 03/21/23 20:16 Dose: 4 mg Documented By: FARA Imaging Data Attestation: I personally reviewed and interpreted this imaging study as follows: My Impression: CT of the abdomen and pelvis was obtained in the emergency department. My interpretation is no free air or signs of bowel obstruction, final report below. Radiologist's Impression: Abdomen/Pelvis CT 03/21/23 16:57 Exam(s): CT ABDOMEN + PELVIS With Contrast IV Amt: 84ml EXAM: CT Abdomen and Pelvis With Intravenous Contrast CLINICAL HISTORY: Reason for exam: abd pain, fever, 2 days after vag delivery. TECHNIQUE: Axial computed tomography images of the abdomen and pelvis with intravenous contrast. CTDI is 26.52 mGy and DLP is 1354.73 mGy-cm. Automated exposure control was utilized for the study. A dose lowering technique was utilized adhering to the principles of ALARA. CONTRAST: Patient received 84ml of IV contrast COMPARISON: No relevant prior studies available. FINDINGS: Lung bases: Unremarkable. No mass. No consolidation. ABDOMEN: Liver: Unremarkable. No mass. Gallbladder and bile ducts: Unremarkable. No calcified stones. No ductal dilation. Pancreas: Unremarkable. No mass. No ductal dilation. Spleen: Unremarkable. No splenomegaly. Adrenals: Unremarkable. No mass. Kidneys and ureters: Unremarkable. No solid mass. No hydronephrosis. Stomach and bowel: Unremarkable. No mucosal thickening. No bowel obstruction. PELVIS: Appendix: Normal appendix. Bladder: Unremarkable. No mass. Reproductive: Enlarged uterus. 4.5 cm intramural mass anterior uterine wall, potentially fibroid. ABDOMEN and PELVIS: Intraperitoneal space: Trace pelvic free fluid. No free air. No pelvic abscess. Bones/joints: No acute fracture or dislocation. Soft tissues: Small fat-containing umbilical hernia with surrounding subcutaneous edema. Vasculature: Unremarkable. No abdominal aortic aneurysm. Lymph nodes: Unremarkable. No enlarged lymph nodes. IMPRESSION: 1. No findings to account for fever. 2. Enlarged uterus. 4.5 cm intramural mass anterior uterine wall, potentially fibroid. This could be further characterized on pelvic ultrasound. Electronically signed by: Tj Washington M.D. 03/21/23 21:35 PM Discharge Plan Visit Data Chief Complaint: Fever Stated Complaint: GAVE 03/19, NOW RUNNING A FEVER ED Provider: Bobby Tam Discharge Problem: fever, Abdominal pain, Hypokalemia, Hypomagnesemia Patient Disposition: Being Evaluated by Surgeon Discharge Instructions Interventions: ED Discharge Assessment Last Done: 03/22/23 02:30 Discharge Problem: Abdominal pain Qualifiers: Abdominal location: lower abdomen, unspecified Qualified Code(s): R10.30 - Lower abdominal pain, unspecified
[2023-03-21] MEDS ORDERED: OPTIRAY 320 500ml IV ONE (20:34)
[2023-03-21 20:55] LABS: Hemoglobin 11.4 g/dl (12.0-16.0); Mean Corpuscular Hemoglobin 30.9 pg (25.0-34.0); Mean Corpuscular Hgb Conc 33.5 g/dL (32.0-36.0); Mean Corpuscular Volume 92.1 fL (80.0-100.0); RDW Coefficient of Variation 13.1 % (11.5-14.5); RDW Standard Deviation 43.8 fL (36.4-46.3); Red Blood Count 3.69 M/uL (4.20-5.40)
[2023-03-21 21:02] LABS: Albumin Level 3.5 gm/dl (3.4-5.0); BUN Creatinine Ratio 14.5 (10-20); Bilirubin Direct 0.2 mg/dl (0-0.2); Bilirubin,Total 0.6 mg/dl (0.2-1.0); Est GFR (African American) 105.9 ml/min; Est GFR (Non-African American) 91.4 ml/min; Magnesium 1.5 mg/dl (1.7-2.4); Potassium 3.3 mmol/L (3.5-5.1); Total Protein 6.8 gm/dl (6.0-8.3)
[2023-03-21 21:08] LABS: Troponin I High Sensitivity 15.8 pg/ml (0-14)
[2023-03-21] MEDS ORDERED: MAGNESIUM SULFATE / D5W 1 GM/100 ML BAG IV STA (21:21)
[2023-03-21] MEDS ORDERED: POTASSIUM CHLORIDE / WTR 10 MEQ/100 ML PLCT IV ONE (21:21)
[2023-03-21] MEDS: MoRPHine SULFATE 4 MG/ML 1 ML CARP\\VIAL IV PRN (21:22)
--- NOTE | 2023-03-21 21:36 | CT Scan Report ---
Exam(s): CT ABDOMEN + PELVIS With Contrast IV Amt: 84ml EXAM: CT Abdomen and Pelvis With Intravenous Contrast CLINICAL HISTORY: Reason for exam: abd pain, fever, 2 days after vag delivery. TECHNIQUE: Axial computed tomography images of the abdomen and pelvis with intravenous contrast. CTDI is 26.52 mGy and DLP is 1354.73 mGy-cm. Automated exposure control was utilized for the study. A dose lowering technique was utilized adhering to the principles of ALARA. CONTRAST: Patient received 84ml of IV contrast COMPARISON: No relevant prior studies available. FINDINGS: Lung bases: Unremarkable. No mass. No consolidation. ABDOMEN: Liver: Unremarkable. No mass. Gallbladder and bile ducts: Unremarkable. No calcified stones. No ductal dilation. Pancreas: Unremarkable. No mass. No ductal dilation. Spleen: Unremarkable. No splenomegaly. Adrenals: Unremarkable. No mass. Kidneys and ureters: Unremarkable. No solid mass. No hydronephrosis. Stomach and bowel: Unremarkable. No mucosal thickening. No bowel obstruction. PELVIS: Appendix: Normal appendix. Bladder: Unremarkable. No mass. Reproductive: Enlarged uterus. 4.5 cm intramural mass anterior uterine wall, potentially fibroid. ABDOMEN and PELVIS: Intraperitoneal space: Trace pelvic free fluid. No free air. No pelvic abscess. Bones/joints: No acute fracture or dislocation. Soft tissues: Small fat-containing umbilical hernia with surrounding subcutaneous edema. Vasculature: Unremarkable. No abdominal aortic aneurysm. Lymph nodes: Unremarkable. No enlarged lymph nodes. IMPRESSION: 1. No findings to account for fever. 2. Enlarged uterus. 4.5 cm intramural mass anterior uterine wall, potentially fibroid. This could be further characterized on pelvic ultrasound. Electronically signed by: Tj Washington M.D. 03/21/23 21:35 PM
[2023-03-21 21:57] LABS: Basophils # (auto) 0.02 K/uL (0.00-0.20); Basophils % (auto) 0.1 %; Eosinophils # (auto) 0.02 K/uL (0.00-0.50); Eosinophils % (auto) 0.1 %; Immature Granulocytes # (auto) 0.07 K/uL (0.01-0.20); Immature Granulocytes % (auto) 0.5 %; Lymphocytes # (auto) 0.24 K/uL (1.20-3.40); Lymphocytes % (auto) 1.8 %; Mean Platelet Volume 9.1 fL (9.4-12.4); Monocytes # (auto) 0.37 K/uL (0.11-0.59); Monocytes % (auto) 2.7 %; Neutrophils # (auto) 12.76 K/uL (1.40-6.50); Neutrophils % (auto) 94.8 %; Platelet Count 226 K/uL (130-400); White Blood Count 13.48 K/ul (4.8-10.8)
[2023-03-21 22:26] LABS: Appearance Urine Clear (Clear); Bacteria Urine Automated Negative (Negative); Bilirubin Urine Negative (Negative); Blood Urine 1+ (Negative); Color Urine Yellow; Epithelial Cell Urine Auto >30 /lpf (0-5); Glucose Urine UA Negative (Negative); Ketones Urine 1+ (Negative); Leukocyte Esterase Urine Trace (Negative); Nitrite Urine Negative (Negative); Protein Urine Negative (Negative); RBC Urine Automated 0-4 /hpf (0-4); Specific Gravity Urine > 1.045 (1.000-1.030); Urobilinogen Urine Negative (Negative)
[2023-03-21 22:40] LABS: Renal Epithelial Cells Urine 0-5 /lpf (0-5)
[2023-03-21] MEDS ORDERED: LABETALOL HCL 200 MG TAB PO SCH (22:50)
[2023-03-21] MEDS ORDERED: GENTAMICIN CONSULT ACTIVE PRN (22:55)
--- NOTE | 2023-03-21 23:11 | History & Physical Report ---
Date of Service March 21, 2023 Assessment & Plan (1) Endomyometritis: Plan: Status post vaginal delivery over 48 hours ago Presents as fever and chills CBC and CTs reviewed Plan 1. Admit patient and start with antibiotics and IV fluids. Pelvic ultrasound is done to evaluate the mass seen in the uterus by by CT scan History of Present Illness Chief Complaint: Abdominal and pelvic pain 24 hours after delivery. Primary Care Provider: Marisa Fitzpatrick PA-C Patient is 33-year-old status post vaginal delivery at home on 1227 currently because of unremarkable. Patient had began to experience lower abdominal pain several large clots. Patient is seen in the emergency room. CT scan and labs are done. Labs are unremarkable except for mildly elevated WBC. Blood pressures in the 140s over 90s she is unremarkable considering the fact that she is currently hypertensive on labetalol nonstenotic and the medicine day. LFTs are normal CT scan is unremarkable except for a 4 cm mass in the uterus which is suspected to be a fibroid. Retained products cannot be ruled out recommendation therefore is to follow-up with an ultrasound. Allergies Allergy/AdvReac Type Severity Reaction Status Date / Time No Known Allergies Allergy Verified 03/21/23 22:20 Home Medications Medication Instructions Recorded Confirmed Type bisacodyl 5 mg tablet,delayed 5 mg PO HS 03/05/23 03/21/23 History release (Dulcolax (bisacodyl)) ferrous sulfate 325 mg (65 mg 325 mg PO DAILY 03/05/23 03/21/23 History iron) tablet (Iron (ferrous sulfate)) labetalol 200 mg tablet 200 mg PO BID 03/05/23 03/21/23 History xqbutjep-kma-Mo-FA 1 mg 1 tab PO DAILY 03/05/23 03/21/23 History tablet ibuprofen 600 mg tablet 600 mg PO Q6H PRN fever or pain 03/20/23 03/21/23 Rx #30 tabs Past Med/Surg History Medical History Chronic hypertension Pre-eclampsia Surgical History [place] teeth extracted Social History Smoking Status: Never smoker Second Hand Exposure: No; Hx Alcohol Use: No Hx Substance Use: No Preferred Language: Faroese Communication Ability: Effective Merchandise Pickup/Receiving Associate Required: No Beliefs That Will Affect Care: None marital status: Current Living Situation: Family Feels Safe at Home: Yes Physical Exam Genitourinary: Pelvic exam shows normal female escutcheon no vaginal lacerations or tenderness. Cervix is appears grossly normal. There is no blood in the vault. Cervix appears grossly normal for . No tissues of blood clots coming actively coming out of the uterus. Normal lochia. Uterus is firm and palpated below the umbilicus. Results & Data Results & Data Vital Signs (Past 12 Hours) Vital Signs Temp Pulse Pulse Resp BP BP Pulse Ox 03/21/23 21:41 97 03/21/23 21:30 122 H 30 H 137/98 98 03/21/23 21:00 118 H 18 135/83 99 03/21/23 20:22 117 H 03/21/23 16:56 37.4 C 128 H 20 119/64 96 O2 Del Method 03/21/23 21:41 Room Air 03/21/23 21:30 Room Air 03/21/23 21:00 Room Air 03/21/23 20:22 03/21/23 16:56 Room Air
[2023-03-21 23:14] LABS: Adenovirus PCR Not Detected (NotDetected); Bordetella parapertussis PCR Not Detected (NotDetected); Bordetella pertussis PCR Not Detected (NotDetected); Chlamydia pneumoniae PCR Not Detected (NotDetected); Coronavirus 229E PCR Not Detected (NotDetected); Coronavirus CoV-2 (COVID19)PCR Not Detected (NotDetected); Coronavirus HKU1 PCR Not Detected (NotDetected); Coronavirus NL63 PCR Not Detected (NotDetected); Coronavirus OC43PCR Not Detected (NotDetected); Human Metapneumovirus PCR Not Detected (NotDetected); Influenza A PCR Not Detected (NotDetected); Influenza B PCR Not Detected (NotDetected); Mycoplasma pneumoniae PCR Not Detected (NotDetected); Parainfluenza Virus 1 PCR Not Detected (NotDetected); Parainfluenza Virus 2 PCR Not Detected (NotDetected); Parainfluenza Virus 3 PCR Not Detected (NotDetected); Parainfluenza Virus 4 PCR Not Detected (NotDetected); Respiratory Syncytial VirusPCR Not Detected (NotDetected); Rhinovirus/Enterovirus PCR Not Detected (NotDetected)
[2023-03-21] MEDS ORDERED: ONDANSETRON INJ 2 MG/ML 2 ML VIAL IV PRN (23:14)
--- OUTSIDE RECORDS SUMMARY | 2023-03-21 23:29 | External Medical Summary | Summary of Care ---
Author Name Unknown Organization [facility] Address [address] [facility] [place] [address] Phone [phone] Care Team Providers Care Drag Down Name Role Phone Iain Ayon PA-C Primary Care Provider Reason for Visit * Reason Onset Date Comments Fever 03/21/[address] Pond Encounter Details Date Type Department Care Team (Late st Contact Info) Description 03/21/2023 Telephone Gynecology/Obstetrics [facility] [address] [place] [address] Guillaume Patel MD [address] [place] [phone] Fever (Review with Dr. Pond) Allergies No known active allergiesdocumented as of this encounter (statuses as of 03/21/2023) Medications Medication Sig Dispensed Refills Start Date [...] as of this encounter (statuses as of 03/21/2023) Active Problems Problem Noted Date Diagnosed Date [...] insurance coverage and cost ([place] [address]). Patient aware not all insurances cover this [...] as well. Supervision of high-risk , third [facility] 07/25/2022 Overview: Estimated Date of [...] as of this encounter (statuses as of 03/21/2023) Immunizations Name Administration Dates Next Due Seasonal [...] money to get more. Never true 11/13/2022 [place] Depression Scale Answer Date Recorded [place] Depression Scale Total 6 08/13/2022 The thought [...] encounter Miscellaneous Notes * Telephone Encounter - Renetta Priest RN - 03/21/2023 10:57 AM EST Spoke to Dr. Pond. He states this could be from patient's milk coming in. Not concerned right now but wants patient to monitor and rotate using Tylenol and ibuprofen. Advised patient she can take 600mg Ibuprofen Q6H and since patient is taking ES Tylenol should take 1000mg Q8H. Patient made aware to call back with any worsening or new symptoms. Call if things are not improving. Patient verbalized understanding. * Telephone Encounter - Renetta Priest RN - 03/21/2023 10:34 AM EST Patient calling in. S/P vaginal delivery 03/19 with Zeger. C/o of fever. No complications during delivery , no lacerations. Temp last night 11pm 99 F This morning temp was 101.3 F Tylenol Improved to 100 F Bleeding seems to be heavier today , changing pad every 3-4 hours, passing clot size of quarter. Patient is breast feeding, no redness/rashes/lumps on breast. + Pelvic pain with movement. + back pain 10/31 no help with Tylenol. Please review and advise. documented in this encounter Plan of Treatment Upcoming Encounters Date Type Department Care Team (Late st Contact Info) Description 05/02/2023 9:00 AM EST Office Visit Gynecology[facility]stetics [place] [facility] [place] [phone] Evelyn Roger PA-C [facility] [place] [address] Health Maintenance Due Date Last Done Comments [...] filedocumented as of this encounter Care Teams Drag Down Relationship Specialty Start Date End Date Iain Ayon PA-C [address] [address] [place] [address] PCP - General Physician Warehouse Delivery Manager 07/23/22 documented as of this encounter
--- OUTSIDE RECORDS SUMMARY | 2023-03-21 23:29 | External Medical Summary | Summary of Care ---
Author Name Unknown Organization [facility] Address [address] [facility] [place] [address] Phone [phone] Care Team Providers Care Tree Trimming Line Technician Name Role Phone Iain Ayon PA-C Primary Care Provider Reason for Visit * Reason Onset Date Comments Fever 03/21/[address] Pond Encounter Details Date Type Department Care Team (Late st Contact Info) Description 03/21/2023 Telephone Gynecology/Obstetrics [facility] [address] [place] [address] Guillaume Patel MD [address] [place] [address] Fever (Review with Dr. Pond) Allergies No [...] insurance coverage and cost ([place] [address]). Patient aware not all insurances cover this [...] well. Supervision of high-risk , third [facility] 07/25/2022 Overview: Estimated Date of Delivery: 03/24/23 [...] money to get more. Never true 11/13/2022 [place] Depression Scale Answer Date Recorded [place] Depression Scale Total 6 08/13/2022 The thought [...] 05/02/2023 9:00 AM EST Office Visit Gynecology/Obstetics [place] 68 [place] [phone] Evelyn Roger PA-C 68 [place] [address] Health Maintenance Due Date Last Done Comments [...] filedocumented as of this encounter Care Teams Tree Trimming Line Technician Relationship Specialty Start Date End Date Iain Ayon PA-C [address] [place] [address] [place] [address] PCP - General Physician Professor Of Historical Theology 07/23/22 documented as of this encounter
--- OUTSIDE RECORDS SUMMARY | 2023-03-21 23:29 | External Medical Summary | Summary of Care ---
Author Name Unknown Organization [facility] Address [address] [facility] [place] [address] Phone [phone] Care Team Providers Care Senior Compliance Analyst Name Role Phone Iain Ayon PA-C Primary Care Provider Reason for Visit * Reason Onset Date Comments Hospital Follow-Up 03/21/2023 JARAD Encounter Details Date Type Department Care Team (Late st Contact Info) Description 03/21/2023 Telephone Ancillary [place] [facility] [place] [address] [place] [phone] Carol Ann Live, [facility] Follow-Up (JARAD) Allergies No known active allergiesdocumented as of [...] be 33 years-old at time of delivery (OCRY 03/24/23). Qnatal testing is low risk. Last [...] insurance coverage and cost ([place] [address]). Patient aware not all insurances cover this [...] as well. Supervision of high-risk , third [facility] 07/25/2022 Overview: Estimated Date of Delivery: 03/24/23 [...] money to get more. Never true 11/13/2022 [place] Depression Scale Answer Date Recorded [place] Depression Scale Total 6 08/13/2022 The thought [...] encounter Miscellaneous Notes * Telephone Encounter - Carol Ann Live RN - 03/21/2023 8:27 AM EST Chart reviewed and JARAD not indicated, Pt has a follow up with SILO TENDER No pcp follow up recommended at this time. documented in this encounter Plan of Treatment Upcoming Encounters Date Type Department Care Team (Late st Contact Info) Description 05/02/2023 9:00 AM EST Office Visit Gynecology/Obstetics [place] 68 [facility] [phone] Evelyn Roger PA-C 68 [facility] [place] [address] Health Maintenance Due Date Last Done Comments [...] filedocumented as of this encounter Care Teams Senior Compliance Analyst Relationship Specialty Start Date End Date Iain Ayon PA-C [address] [place] [address] PCP - General Physician Pulmonology Physician 07/23/22 documented as of this encounter
--- OUTSIDE RECORDS SUMMARY | 2023-03-21 23:29 | External Medical Summary | Summary of Care ---
Author Name Unknown Organization [facility] [address] [place] [address] Phone [phone] Care Team Providers Care Calendering Supervisor Name Role Phone Iain Ayon PA-C Primary Care Provider Reason for Visit * Reason Onset Date Comments Advice 03/21/2023 Encounter Details Date Type Department Care Team (Late st Contact Info) Description 03/21/2023 Telephone Gynecology/Obstetrics [facility] [address] [place], [place] [phone] Services, Scheduling [address] [place] [address] Advice Allergies No known active allergiesdocumented as [...] insurance coverage and cost ([place] [address]). Patient aware not all insurances cover this [...] well. Supervision of high-risk , [facility] 07/25/2022 Overview: Estimated Date of [...] money to get more. Never true 11/13/2022 [place] Depression Scale Answer Date Recorded [place] Depression Scale Total 6 08/13/2022 The thought [...] encounter Miscellaneous Notes * Telephone Encounter - Ciera Lane CCMA - 03/21/2023 9:51 AM EST Pt sent MyG- responded in MyG * Telephone Encounter - Harpreet Tan OSA - 03/21/2023 9:02 AM EST Patient is calling as she stated she spoke to the metal sponge making machine operator doctor last night regarding having a fever and just delivered on 03/19. She said the doctor had told her to call if it didn't go away and to possible be seen but she wanted to know what would be the best option for her. I had no appts available pulling. Please advise and assist with call back if possible. Thank you. documented in this encounter Plan of Treatment Upcoming Encounters Date Type Department Care Team (Late st Contact Info) Description 05/02/2023 9:00 AM EST Office Visit Gynecology/Obstetics [place] [address] [place] [phone] Evelyn Roger PA-C 68 [place] [address] Health Maintenance Due Date Last [...] filedocumented as of this encounter Care Teams Calendering Supervisor Relationship Specialty Start Date End Date Iain Ayon PA-C [address] [address] [place] [address] PCP - General Physician Bakery Worker 07/23/22 documented as of this encounter
[2023-03-21] MEDS ORDERED: GENTAMICIN SULFATE 460 MG in DEXTROSE 5% 100 ML IV ONE (23:30)
--- OUTSIDE RECORDS SUMMARY | 2023-03-21 23:30 | External Medical Summary | Summary of Care ---
Author Name Unknown Organization [facility] Address [address] [place] [address] Phone [phone] Care Team Providers Care Medical Resident Name Role Phone Iain Ayon PA-C Primary Care Provider Encounter Details Date Type Department Care Team ([facility] st Contact Info) Description 03/20/2023 Telephone Gynecology/Obstetics [place] 68 [facility] [place] [phone] Evelyn Roger PA-C [facility] [place] [phone] Allergies No known active allergiesdocumented as of this encounter (statuses as of 03/20/2023) Medications Medication Sig Dispensed Refills Start Date [...] as of this encounter (statuses as of 03/20/2023) Active Problems Problem Noted Date Diagnosed Date [...] insurance coverage and cost ([place] [address]). Patient aware not all insurances cover this [...] as well. Supervision of high-risk , third [facility] 07/25/2022 Overview: Estimated Date of Delivery: [...] as of this encounter (statuses as of 03/20/2023) Immunizations Name Administration Dates Next Due Seasonal [...] money to get more. Never true 11/13/2022 [place] Depression Scale Answer Date Recorded [place] Depression Scale Total 6 08/13/2022 The thought [...] 05/02/2023 9:00 AM EST Office Visit Gynecology/Obstetics [place] 68 [facility] [place] [phone] Evelyn Roger PA-C [address] [facility] [place] [address] Health Maintenance Due Date Last Done Comments [...] filedocumented as of this encounter Care Teams Medical Resident Relationship Specialty Start Date End Date Iain Ayon PA-C 1 [facility] [address] [facility] [place] [address] PCP - General Physician Forklift Driver 07/23/22 documented as of this encounter
--- OUTSIDE RECORDS SUMMARY | 2023-03-21 23:30 | External Medical Summary | Summary of Care ---
Author Name Unknown Organization [facility] Address [address] [facility] [place] [address] Phone [phone] Care Team Providers Care Personal Companion Name Role Phone Iain Ayon PA-C Primary Care Provider Reason for Visit * Reason Onset Date Comments Appointment 03/19/2023 Encounter Details Date Type Department Care Team (Late st Contact Info) Description 03/19/2023 Telephone Gynecology/Obstetrics [facility] [address] [facility] [place] [address] ADDRESS AVAILABLE Appointment Allergies No known active allergiesdocumented as of [...] insurance coverage and cost ([place] [address]). Patient aware not all insurances cover this [...] counseling as well. Supervision of high-risk , [facility] 07/25/2022 Overview: Estimated Date of [...] money to get more. Never true 11/13/2022 [place] Depression Scale Answer Date Recorded [place] Depression Scale Total 6 08/13/2022 The thought [...] encounter Miscellaneous Notes * Telephone Encounter - Ml Randall MED ASSIST - 03/20/2023 8:37 AM EST No available appointments in time frame for 3wk ppv and 6wk ppv. Please review and schedule pt for post visits. Delivered on 03/19/23 * Telephone Encounter - Jaye Forde LPN - 03/20/2023 8:31 AM EST Please see myg and get her rescheduled with [facility] documented in this encounter Plan of Treatment Upcoming Encounters Date Type Department Care Team (Late st Contact Info) Description 05/02/2023 9:00 AM EST Office Visit Gynecology/Obstetics [place] 68 [facility] [place] [phone] Evelyn Roger PA-C 68 [facility] [place] [address] Health Maintenance Due Date Last Done Comments [...] filedocumented as of this encounter Care Teams Personal Companion Relationship Specialty Start Date End Date Iain Ayon PA-C [address] [place] [address] [place] [address] PCP - General Physician Laundry Agent 07/23/22 documented as of this encounter
--- OUTSIDE RECORDS SUMMARY | 2023-03-21 23:30 | External Medical Summary | Summary of Care ---
Author Name Unknown Organization [facility] Address [address] [facility] [place] [address] Phone [phone] Care Team Providers Care Financial Investment Adviser Name Role Phone Iain Ayon PA-C Primary Care Provider Reason for Visit * Reason Onset Date Comments Appointment 03/19/2023 Encounter Details Date Type Department Care Team (Late st Contact Info) Description 03/19/2023 Telephone Gynecology/Obstetrics [facility] 132 [facility] [place] [address] AVAILABLE Appointment Allergies [...] insurance coverage and cost ([place] [address]). Patient aware not all insurances cover this [...] counseling as well. Supervision of high-risk , [facility] 07/25/2022 Overview: Estimated Date of Delivery: [...] to get more. Never true 11/13/2022 [place] Depression Scale Answer Date Recorded [place] Depression Scale Total 6 08/13/2022 The thought [...] EST Office Visit Gynecology/Obstetics [place] 68 [facility] [place] [phone] Evelyn Roger PA-C 68 [facility] [place] [address] Health Maintenance Due Date Last Done Comments [...] filedocumented as of this encounter Care Teams Financial Investment Adviser Relationship Specialty Start Date End Date Iain Ayon PA-C [address] [place] [address] [place] [address] PCP - General Physician Extractions Technologist 07/23/22 documented as of this encounter
--- OUTSIDE RECORDS SUMMARY | 2023-03-21 23:30 | External Medical Summary | Summary of Care ---
Author Name Unknown Organization [facility] Address [address] [facility] [place] [address] Phone [phone] Care Team Providers Care Application Support Lead Name Role Phone Iain Ayon PA-C Primary Care Provider Encounter Details Date Type Department Care Team (Late st Contact Info) Description 02/28/2023 Telephone Gynecology/Obstetrics [facility] [address] [place] [address] Doc Pond MD [address] [place] [address] Allergies No known active allergiesdocumented as of this encounter (statuses as of 03/18/2023) Medications Medication Sig Dispensed Refills Start Date [...] as of this encounter (statuses as of 03/18/2023) Active Problems Problem Noted Date Diagnosed Date [...] insurance coverage and cost ([place] [address]). Patient aware not all insurances cover this [...] as well. Supervision of high-risk , third [facility] 07/25/2022 Overview: Estimated Date of [...] as of this encounter (statuses as of 03/18/2023) Immunizations Name Administration Dates Next Due Seasonal [...] money to get more. Never true 11/13/2022 [place] Depression Scale Answer Date Recorded [place] Depression Scale Total 6 08/13/2022 The thought [...] encounter Miscellaneous Notes * Telephone Encounter - Araseli Rodriguez OSA - 03/04/2023 1:55 PM EST In Book and scheduled in [facility] * Telephone Encounter - Evelyn Wood RN - 03/04/2023 10:34 AM EST Pt is scheduled for induction on 03/18 at [facility]. Spoke with pt. She is aware. Induction instructionsgiven. Message to Abby * Telephone Encounter - Evelyn Wood RN - 03/04/2023 10:24 AM EST Pt will need scheduled between 03/17-03/23. * Telephone Encounter - Evelyn Wood RN - 02/28/2023 4:00 PM EST I received a call from Kay Maki. Pt has CHTN and needs induced by 39 weeks. She is planning delivery at [facility]. She has declined making an appointment to be seen at [facility]. Works below [place] so getting to an appointment at [facility] would be difficult for her so she does not want to be seen here but deliver at [facility]. Kay is asking if it is okay to set her up for induction. Will review with provider and provider back next week to discuss. Kay did say that pt does have an induction scheduled in [place] but this was scheduled just incase the providers at [facility] do not feel comfortable delivering her. Will ask Dr. Patel, econometrician provider to review. documented in this encounter Plan of Treatment Scheduled Procedures Name Priority Associated Diagnoses Date/Ti [...] filedocumented as of this encounter Care Teams Application Support Lead Relationship Specialty Start Date End Date Iain Ayon PA-C [address] [address] [place] [address] PCP - General Physician Strawberry Grower 07/23/22 documented as of this encounter
[2023-03-21] MEDS: CLINDAMYCIN/D5W 900 MG/50 ML BAG IV SCH (23:43)
[2023-03-22] MEDS ORDERED: IBUPROFEN 600 MG TAB PO SCH
[2023-03-22] MEDS: LACTATED RINGER'S 1,000 ML IV SCH ×3 (00:42→15:35)
[2023-03-22] MEDS: MoRPHine SULFATE 4 MG/ML 1 ML CARP\\VIAL IV PRN ×3 (01:11→09:42)
--- OUTSIDE RECORDS SUMMARY | 2023-03-22 02:33 | External Medical Summary | Summary of Care ---
Author Name Unknown Organization [facility] Address [address] [facility] [place] [address] Phone [phone] Care Team Providers Care Scientist Engineer Name Role Phone Iain Ayon PA-C Primary Care Provider Reason for Visit * Reason Onset Date Comments Fever 03/21/[address] Pond Encounter Details Date Type Department Care Team (Late st Contact Info) Description 03/21/2023 Telephone Gynecology/Obstetrics [facility] [address] [place] [address] Guillaume Patel MD [address] [place] [address] Fever (Review with Dr. Pond) Allergies No [...] insurance coverage and cost ([place] [address]). Patient aware not all insurances cover this [...] as well. Supervision of high-risk , third [facility] 07/25/2022 Overview: Estimated Date of Delivery: [...] money to get more. Never true 11/13/2022 [place] Depression Scale Answer Date Recorded [place] Depression Scale Total 6 08/13/2022 The thought [...] Miscellaneous Notes * Telephone Encounter - Evelyn Wood RN - 03/21/2023 3:47 PM EST Pts temp is now 104.3. Advised to go to ER for evaluation Pt aware and agreeable. * Telephone Encounter - Renetta Priest RN [...] 05/02/2023 9:00 AM EST Office Visit Gynecology/Obstetics [address] [phone] Evelyn Roger PA-C [address] [place] [address] Health Maintenance Due Date Last Done Comments [...] filedocumented as of this encounter Care Teams Scientist Engineer Relationship Specialty Start Date End Date Iain Ayon PA-C [address] [address] [place] [address] PCP - General Physician Field Agronomist 07/23/22 documented as of this encounter
--- NOTE | 2023-03-22 03:18 | Ultrasound Report ---
Exam(s): US PELVIS EXAM: US Pelvis Transabdominal, Complete CLINICAL HISTORY: Reason for exam: VD [address] pelvic pain CT done. TECHNIQUE: Real-time complete transabdominal pelvic ultrasound with image documentation. COMPARISON: No relevant prior studies available. FINDINGS: Uterus/cervix: Enlarged uterus measuring 18.9 x 8.4 x 11.8 cm. Anterior intramural mass measuring 5.5 cm, most likely fibroid. Complex and thickened endometrium measuring up to 4 cm with increased vascularity in the periphery. Right ovary: Right ovary measures 44 x 30 x 19 mm. Normal blood flow. Left ovary: Left ovary measures 49 x 31 x 29 mm. Normal blood flow. Free fluid: No free fluid. Bladder: Unremarkable as visualized. Wall is normal thickness for degree of distention. IMPRESSION: 1. Enlarged uterus. 2. Complex and thickened endometrium with questionable increased vascularity, correlate for retained products. 3. Anterior intramural fibroid measuring 5.5 cm. Electronically signed by: Tj Washington M.D. 03/22/23 03:17 AM
[2023-03-22 05:37] LABS: Albumin Level 2.9 gm/dl (3.4-5.0); BUN Creatinine Ratio 14.8 (10-20); Bilirubin,Total 0.6 mg/dl (0.2-1.0); Calcium 8.2 mg/dl (8.6-10.3); Creatinine Clr Calc Pharmacy 103.5 ml/min; Est GFR (African American) 109.1 ml/min; Est GFR (Non-African American) 94.1 ml/min; Globulin 2.8 gm/dl (2.5-4.0); Potassium 3.5 mmol/L (3.5-5.1); Total Protein 5.7 gm/dl (6.0-8.3)
[2023-03-22 06:23] LABS: Basophils # (auto) 0.03 K/uL (0.00-0.20); Basophils % (auto) 0.2 %; Eosinophils # (auto) 0.05 K/uL (0.00-0.50); Eosinophils % (auto) 0.4 %; Hematocrit (blood only) 28.7 % (37.0-47.0); Hemoglobin 9.7 g/dl (12.0-16.0); Immature Granulocytes # (auto) 0.07 K/uL (0.01-0.20); Immature Granulocytes % (auto) 0.5 %; Lymphocytes # (auto) 0.22 K/uL (1.20-3.40); Lymphocytes % (auto) 1.6 %; Mean Corpuscular Hgb Conc 33.8 g/dL (32.0-36.0); Mean Corpuscular Volume 91.7 fL (80.0-100.0); Mean Platelet Volume 9.2 fL (9.4-12.4); Monocytes # (auto) 0.49 K/uL (0.11-0.59); Monocytes % (auto) 3.5 %; Neutrophils # (auto) 12.96 K/uL (1.40-6.50); Neutrophils % (auto) 93.8 %; Platelet Count 220 K/uL (130-400); RDW Coefficient of Variation 13.2 % (11.5-14.5); RDW Standard Deviation 43.4 fL (36.4-46.3); Red Blood Count 3.13 M/uL (4.20-5.40); White Blood Count 13.82 K/ul (4.8-10.8)
--- NOTE | 2023-03-22 07:36 | Electrocardiogram Report ---
Test Reason : Blood Pressure : / mmHG Vent. Rate : 119 BPM Atrial Rate : 119 BPM P-R Int : 132 ms QRS Dur : 076 ms QT Int : 306 ms P-R-T Axes : 052 020 029 degrees QTc Int : 430 ms Sinus tachycardia Otherwise normal ECG No previous ECGs available Confirmed by Ramy Spangler ([id number]) on 03/22/2023 7:36:09 AM Referred By: REFERRED SELF Confirmed By:Ramy Spangler
--- NOTE | 2023-03-22 08:35 | Gynecologic Progress Note ---
Date of Service March 22, 2023 Assessment & Plan (1) Endomyometritis: Plan: Pt doing and feeling better on antibx Discussed and reviewed sono report with pt Discussed surgery ( D&E) vrs medical tx (Cytotec) and expectant management - Risk benefits of each discussed with pt Pt declined D&E and wishes to do Cytotec. she reports she is having minimal bleeding Plan Continue with antibx tx Cytotec 600mcg x 4 doses Admission and Anticipated Discharge Date Admission Date: March 21, 2023 Results & Data Vital Signs (Past 12 Hours) Vital Signs Temp Pulse Pulse Resp BP BP Pulse Ox 03/22/23 03:35 108 H 18 102/62 96 03/22/23 03:20 37.4 C 03/22/23 02:11 117 H 03/22/23 02:01 118 H 22 109/67 94 03/22/23 01:51 121 H 22 108/64 96 03/22/23 01:15 39.3 C H 03/22/23 01:00 122 H 22 116/72 95 03/22/23 01:00 116/72 03/22/23 00:31 127 H 22 119/79 94 03/22/23 00:01 128 H 22 148/93 H 95 03/22/23 00:00 128 H 22 96 03/21/23 23:46 39.3 C H 03/21/23 23:35 138 H 29 H 95 03/21/23 23:35 133/90 03/21/23 23:30 140 H 32 H 03/21/23 23:21 140/85 03/21/23 23:21 140 H 36 H 93 03/21/23 23:15 142/87 H 03/21/23 23:15 134 H 34 H 93 03/21/23 23:00 135/88 03/21/23 23:00 136 H 11 L 03/21/23 22:15 148/93 H 03/21/23 22:15 126 H 26 H 98 03/21/23 22:07 125 H 29 H 96 03/21/23 22:07 143/92 H 03/21/23 22:01 136 H 20 97 03/21/23 22:01 134/109 H 03/21/23 22:00 37.5 C 03/21/23 22:00 132 H 29 H 97 03/21/23 21:45 127 H 24 98 03/21/23 21:45 142/87 H 03/21/23 21:41 97 03/21/23 21:33 125 H 22 98 03/21/23 21:33 145/94 H 03/21/23 21:30 137/98 03/21/23 21:30 120 H 27 H 98 03/21/23 21:30 122 H 30 H 137/98 98 03/21/23 21:15 118 H 20 98 03/21/23 21:15 136/81 03/21/23 21:01 135/83 03/21/23 21:01 121 H 24 98 03/21/23 21:00 120 H 22 98 03/21/23 21:00 118 H 18 135/83 99 03/21/23 20:45 133/90 03/21/23 20:45 121 H 22 99 03/21/23 20:40 130 H 17 O2 Del Method 03/22/23 03:35 Room Air 03/22/23 03:20 03/22/23 02:11 03/22/23 02:01 Room Air 03/22/23 01:51 Room Air 03/22/23 01:15 03/22/23 01:00 Room Air 03/22/23 01:00 03/22/23 00:31 Room Air 03/22/23 00:01 Room Air 03/22/23 00:00 Room Air 03/21/23 23:46 03/21/23 23:35 03/21/23 23:35 03/21/23 23:30 03/21/23 23:21 03/21/23 23:21 03/21/23 23:15 03/21/23 23:15 03/21/23 23:00 03/21/23 23:00 03/21/23 22:15 03/21/23 22:15 03/21/23 22:07 03/21/23 22:07 03/21/23 22:01 03/21/23 22:01 03/21/23 22:00 03/21/23 22:00 03/21/23 21:45 03/21/23 21:45 03/21/23 21:41 Room Air 03/21/23 21:33 03/21/23 21:33 03/21/23 21:30 03/21/23 21:30 03/21/23 21:30 Room Air 03/21/23 21:15 03/21/23 21:15 03/21/23 21:01 03/21/23 21:01 03/21/23 21:00 03/21/23 21:00 Room Air 03/21/23 20:45 03/21/23 20:45 03/21/23 20:40
[2023-03-22] MEDS ORDERED: GENTAMICIN CONSULT ACTIVE PRN (08:57)
[2023-03-22] MEDS: CLINDAMYCIN/D5W 900 MG/50 ML BAG IV SCH ×3 (09:30→22:57)
[2023-03-22] MEDS: LABETALOL HCL 200 MG TAB PO SCH ×2 (09:41→20:59)
[2023-03-22] MEDS: IBUPROFEN 600 MG TAB PO PRN (09:41)
[2023-03-22] MEDS: FERROUS SULFATE 325 MG TAB PO SCH (09:41)
[2023-03-22] MEDS: PRENATAL VITAMIN 1 TAB PO SCH (09:41)
--- NOTE | 2023-03-22 11:30 | Pharmacy Report ---
Pharmacy PK ABX Note - Date of Service March 22, 2023 - Assessment and Plan Assessment 33 year old F receiving gentamicin and clindamycin for treatment of endomyometritis. Blood cultures pending, renal function stable. Day # 1 of antimicrobial therapy. Plan Gentamicin * Extended interval dosing - 5mg/kg (460mg) IV q24h for CrCL >60ml/min * Will obtain a trough if therapy continued >72h Pharmacy will continue to follow and will adjust dose/frequency as necessary. Thank you.
[2023-03-22] MEDS: miSOPROStoL 200 MCG TAB PO SCH ×2 (13:04→18:35)
[2023-03-22] MEDS: ACETAMINOPHEN 325 MG TAB PO PRN ×3 (13:13→23:47)
[2023-03-22] MEDS: bisacodyL 5 MG TABEC PO SCH (20:59)
[2023-03-22] MEDS ORDERED: GENTAMICIN SULFATE 460 MG in DEXTROSE 5% 100 ML IV ONE (23:30)
[2023-03-23] MEDS: miSOPROStoL 200 MCG TAB PO SCH ×2 (00:10→05:52)
[2023-03-23] MEDS: LACTATED RINGER'S 1,000 ML IV SCH ×3 (02:43→20:22)
[2023-03-23 06:54] LABS: Hemoglobin 10.7 g/dl (12.0-16.0); Mean Corpuscular Hemoglobin 31.1 pg (25.0-34.0); Mean Corpuscular Hgb Conc 33.4 g/dL (32.0-36.0); Mean Platelet Volume 9.6 fL (9.4-12.4); Platelet Count 267 K/uL (130-400); RDW Standard Deviation 43.8 fL (36.4-46.3); Red Blood Count 3.44 M/uL (4.20-5.40); White Blood Count 11.34 K/ul (4.8-10.8)
--- NOTE | 2023-03-23 07:09 | Gynecologic Progress Note ---
Date of Service March 23, 2023 Assessment & Plan (1) Endomyometritis: Plan: Continue IV gentamicin and clindamycin until tomorrow when she has been 24 hours afebrile Plan to transition to p.o. antibiotics and potentially discharge home tomorrow if no more spikes in her temperature She has received 4 doses of Cytotec 600 mcg, bleeding has improved Discussed plan of care with patient at bedside, she is agreeable. All questions were answered at the bedside Admission and Anticipated Discharge Date Admission Date: March 21, 2023 Subjective Patient sitting up in bed, has had diarrhea overnight due to the Cytotec. Still feeling chills. Had to stop pumping last night so she could get some rest. Has been able to ambulate to the bathroom. No other concerns at this time Last documented fever at 1 AM Review of Systems Review of Systems: All systems reviewed & are unremarkable except as noted in HPI & below Physical Exam Constitutional: WD/WN, vitals as above Respiratory: normal respiratory effort, lungs clear to auscultation Cardiovascular: RRR, no murmur, no edema Gastrointestinal (Abdomen): normal bowel sounds, soft, nontender, no hepatosplenomegaly Fundus tenderness to palpation, no guarding or rebound Results & Data Vital Signs (Past 12 Hours) Vital Signs Temp Pulse Resp BP Pulse Ox O2 Del Method 03/23/23 03:20 37.5 C 108 H 20 138/90 95 Room Air 03/23/23 01:00 38.1 C H 03/22/23 23:45 39.5 C H 103 H 18 132/88 95 Room Air 03/22/23 20:30 Room Air 03/22/23 20:30 37.5 C 111 H 20 143/88 H 94 Room Air Diagnostic Findings Laboratory Results WBC 11.34 K/ul (4.8-10.8) H 03/23/23 06:18 RBC 3.44 M/uL (4.20-5.40) L 03/23/23 06:18 Hgb 10.7 g/dl (12.0-16.0) L 03/23/23 06:18 Hct 32.0 % (37.0-47.0) L 03/23/23 06:18 MCV 93.0 fL (80.0-100.0) 03/23/23 06:18 MCH 31.1 pg (25.0-34.0) 03/23/23 06:18 MCHC 33.4 g/dL (32.0-36.0) 03/23/23 06:18 RDW Std Deviation 43.8 fL (36.4-46.3) 03/23/23 06:18 RDW Coeff of Reid 13.0 % (11.5-14.5) 03/23/23 06:18 Plt Count 267 K/uL (130-400) 03/23/23 06:18 MPV 9.6 fL (9.4-12.4) 03/23/23 06:18 Immature Gran % (Auto) 0.5 % 03/22/23 05:04 Neut % (Auto) 93.8 % 03/22/23 05:04 Lymph % (Auto) 1.6 % 03/22/23 05:04 [place] % (Auto) 3.5 % 03/22/23 05:04 Eos % (Auto) 0.4 % 03/22/23 05:04 Baso % (Auto) 0.2 % 03/22/23 05:04 Neut # (Auto) 12.96 K/uL (1.40-6.50) H 03/22/23 05:04 Lymph # (Auto) 0.22 K/uL (1.20-3.40) L 03/22/23 05:04 [place] # (Auto) 0.49 K/uL (0.11-0.59) 03/22/23 05:04 Eos # (Auto) 0.05 K/uL (0.00-0.50) 03/22/23 05:04 Baso # (Auto) 0.03 K/uL (0.00-0.20) 03/22/23 05:04 Immature Gran # (Auto) 0.07 K/uL (0.01-0.20) 03/22/23 05:04 Sodium 133 mmol/L (136-145) L 03/22/23 05:04 Potassium 3.5 mmol/L (3.5-5.1) 03/22/23 05:04 Chloride 103 mmol/L (98-107) 03/22/23 05:04 Carbon Dioxide 19 mmol/L (21-32) L 03/22/23 05:04 Anion Gap 11 (3-11) 03/22/23 05:04 BUN 12 mg/dl (6-23) 03/22/23 05:04 Creatinine 0.81 mg/dl (0.6-1.2) 03/22/23 05:04 Est Cr Clr Drug Dosing 103.5 ml/min 03/22/23 05:04 Est GFR ( Amer) 109.1 ml/min 03/22/23 05:04 Est GFR (Non-Af Amer) 94.1 ml/min 03/22/23 05:04 BUN/Creatinine Ratio 14.8 (10-20) 03/22/23 05:04 Glucose 94 mg/dl (70-99(Fasting)) 03/22/23 05:04 Lactate 1.4 mmol/L (0.4-2.0) 03/21/23 20:12 Calcium 8.2 mg/dl (8.6-10.3) L 03/22/23 05:04 Magnesium 1.5 mg/dl (1.7-2.4) L 03/21/23 20:12 Total Bilirubin 0.6 mg/dl (0.2-1.0) 03/22/23 05:04 Direct Bilirubin 0.2 mg/dl (0-0.2) 03/21/23 20:12 AST 17 U/L (13-39) 03/22/23 05:04 ALT 16 U/L (7-52) 03/22/23 05:04 Alkaline Phosphatase 61 U/L (34-104) 03/22/23 05:04 Troponin I High Sens 15.8 pg/ml (0-14) H 03/21/23 20:12 Total Protein 5.7 gm/dl (6.0-8.3) L 03/22/23 05:04 Albumin 2.9 gm/dl (3.4-5.0) L 03/22/23 05:04 Globulin 2.8 gm/dl (2.5-4.0) 03/22/23 05:04 Albumin/Globulin Ratio 1.0 (0.9-2) 03/22/23 05:04 Procalcitonin 2.04 ng/ml (0-0.5) H 03/21/23 20:12 Urine Color Yellow 03/21/23 22:00 Urine Appearance Clear (Clear) 03/21/23 22:00 Urine pH 6.0 (4.5-7.5) 03/21/23 22:00 Ur Specific [place] > 1.045 (1.000-1.030) H 03/21/23 22:00 Urine Protein Negative (Negative) 03/21/23 22:00 Urine Glucose (UA) Negative (Negative) 03/21/23 22:00 Urine Ketones 1+ (Negative) H 03/21/23 22:00 Urine Blood 1+ (Negative) H 03/21/23 22:00 Urine Nitrite Negative (Negative) 03/21/23 22:00 Urine Bilirubin Negative (Negative) 03/21/23 22:00 Urine Urobilinogen Negative (Negative) 03/21/23 22:00 Ur Leukocyte Esterase Trace (Negative) H 03/21/23 22:00 Urine WBC (Auto) 5-10 /hpf (0-5) H 03/21/23 22:00 Urine RBC (Auto) 0-4 /hpf (0-4) 03/21/23 22:00 U Hyaline Cast (Auto) 1-5 /lpf (0-5) 03/21/23 22:00 U Epithel Cells (Auto) >30 /lpf (0-5) H 03/21/23 22:00 Urine Bacteria (Auto) Negative (Negative) 03/21/23 22:00 Ur Renal Epithelial Cell 0-5 /lpf (0-5) 03/21/23 22:00 Adenovirus (PCR) Not Detected (NotDetected) 03/21/23 22:00 B. pertussis DNA (PCR) Not Detected (NotDetected) 03/21/23 22:00 B.parapertussis DNA PCR Not Detected (NotDetected) 03/21/23 22:00 C. pneumoniae DNA (PCR) Not Detected (NotDetected) 03/21/23 22:00 Coronavirus OC43 (PCR) Not Detected (NotDetected) 03/21/23 22:00 Coronavirus HKU1 (PCR) Not Detected (NotDetected) 03/21/23 22:00 Coronavirus 229E (PCR) Not Detected (NotDetected) 03/21/23 22:00 SARS-CoV-2 (PCR) Not Detected (NotDetected) 03/21/23 22:00 Coronavirus NL63 (PCR) Not Detected (NotDetected) 03/21/23 22:00 Human Metapneumovir PCR Not Detected (NotDetected) 03/21/23 22:00 Influenza Type A (PCR) Not Detected (NotDetected) 03/21/23 22:00 Influenza Type B (PCR) Not Detected (NotDetected) 03/21/23 22:00 M. pneumoniae (PCR) Not Detected (NotDetected) 03/21/23 22:00 Parainfluenza 1 (PCR) Not Detected (NotDetected) 03/21/23 22:00 Parainfluenza 2 (PCR) Not Detected (NotDetected) 03/21/23 22:00 Parainfluenza 3 (PCR) Not Detected (NotDetected) 03/21/23 22:00 Parainfluenza 4 (PCR) Not Detected (NotDetected) 03/21/23 22:00 RSV (PCR) Not Detected (NotDetected) 03/21/23 22:00 Entero/Rhino (PCR) Not Detected (NotDetected) 03/21/23 22:00 Impressions Abdomen/Pelvis CT 03/21/23 16:57 Exam(s): CT ABDOMEN + PELVIS With Contrast IV Amt: 84ml EXAM: CT Abdomen and Pelvis With Intravenous Contrast CLINICAL HISTORY: Reason for exam: abd pain, fever, 2 days after vag delivery. TECHNIQUE: Axial computed tomography images of the abdomen and pelvis with intravenous contrast. CTDI is 26.52 mGy and DLP is 1354.73 mGy-cm. Automated exposure control was utilized for the study. A dose lowering technique was utilized adhering to the principles of ALARA. CONTRAST: Patient received 84ml of IV contrast COMPARISON: No relevant prior studies available. FINDINGS: Lung bases: Unremarkable. No mass. No consolidation. ABDOMEN: Liver: Unremarkable. No mass. Gallbladder and bile ducts: Unremarkable. No calcified stones. No ductal dilation. Pancreas: Unremarkable. No mass. No ductal dilation. Spleen: Unremarkable. No splenomegaly. Adrenals: Unremarkable. No mass. Kidneys and ureters: Unremarkable. No solid mass. No hydronephrosis. Stomach and bowel: Unremarkable. No mucosal thickening. No bowel obstruction. PELVIS: Appendix: Normal appendix. Bladder: Unremarkable. No mass. Reproductive: Enlarged uterus. 4.5 cm intramural mass anterior uterine wall, potentially fibroid. ABDOMEN and PELVIS: Intraperitoneal space: Trace pelvic free fluid. No free air. No pelvic abscess. Bones/joints: No acute fracture or dislocation. Soft tissues: Small fat-containing umbilical hernia with surrounding subcutaneous edema. Vasculature: Unremarkable. No abdominal aortic aneurysm. Lymph nodes: Unremarkable. No enlarged lymph nodes. IMPRESSION: 1. No findings to account for fever. 2. Enlarged uterus. 4.5 cm intramural mass anterior uterine wall, potentially fibroid. This could be further characterized on pelvic ultrasound. Electronically signed by: Tj Washington M.D. 03/21/23 21:35 PM Chest X-Ray 03/21/23 16:57 XR chest 1V not portable CLINICAL HISTORY: Sepsis TECHNIQUE: Single frontal radiograph of the chest was obtained. Comparison: None available at the time of this dictation. FINDINGS: No lines and tubes are seen. The cardiomediastinal silhouette is normal. The lungs are clear. No evidence of pleural effusion or pneumothorax. IMPRESSION: No acute abnormalities and in particular no radiographic evidence of pneumonia. ACT 112: Negative or not required by law. Electronically signed by: Ian Yoo M.D. 03/21/2023 5:27 PM Pelvis Ultrasound 03/22/23 22:47 Exam(s): US PELVIS EXAM: US Pelvis Transabdominal, Complete CLINICAL HISTORY: Reason for exam: VD [address] pelvic pain CT done. TECHNIQUE: Real-time complete transabdominal pelvic ultrasound with image documentation. COMPARISON: No relevant prior studies available. FINDINGS: Uterus/cervix: Enlarged uterus measuring 18.9 x 8.4 x 11.8 cm. Anterior intramural mass measuring 5.5 cm, most likely fibroid. Complex and thickened endometrium measuring up to 4 cm with increased vascularity in the periphery. Right ovary: Right ovary measures 44 x 30 x 19 mm. Normal blood flow. Left ovary: Left ovary measures 49 x 31 x 29 mm. Normal blood flow. Free fluid: No free fluid. Bladder: Unremarkable as visualized. Wall is normal thickness for degree of distention. IMPRESSION: 1. Enlarged uterus. 2. Complex and thickened endometrium with questionable increased vascularity, correlate for retained products. 3. Anterior intramural fibroid measuring 5.5 cm. Electronically signed by: Tj Washington M.D. 03/22/23 03:17 AM
[2023-03-23 07:17] LABS: Basophils # (auto) 0.02 K/uL (0.00-0.20); Basophils % (auto) 0.2 %; Eosinophils # (auto) 0.15 K/uL (0.00-0.50); Eosinophils % (auto) 1.3 %; Immature Granulocytes # (auto) 0.13 K/uL (0.01-0.20); Immature Granulocytes % (auto) 1.1 %; Lymphocytes # (auto) 0.63 K/uL (1.20-3.40); Lymphocytes % (auto) 5.6 %; Monocytes # (auto) 0.85 K/uL (0.11-0.59); Monocytes % (auto) 7.5 %; Neutrophils # (auto) 9.56 K/uL (1.40-6.50); Neutrophils % (auto) 84.3 %
[2023-03-23] MEDS: CLINDAMYCIN/D5W 900 MG/50 ML BAG IV SCH ×3 (07:17→22:53)
[2023-03-23] MEDS: IBUPROFEN 600 MG TAB PO PRN (07:23)
[2023-03-23 07:29] LABS: BUN Creatinine Ratio 15.6 (10-20); Bilirubin,Total 0.4 mg/dl (0.2-1.0); Calcium 8.5 mg/dl (8.6-10.3); Creatinine Clr Calc Pharmacy 87.4 ml/min; Est GFR (African American) 88.8 ml/min; Est GFR (Non-African American) 76.6 ml/min; Globulin 3.1 gm/dl (2.5-4.0); Potassium 3.5 mmol/L (3.5-5.1); Total Protein 6.1 gm/dl (6.0-8.3)
[2023-03-23] MEDS: LABETALOL HCL 200 MG TAB PO SCH ×2 (08:52→20:31)
[2023-03-23] MEDS: PRENATAL VITAMIN 1 TAB PO SCH (08:53)
[2023-03-23] MEDS: FERROUS SULFATE 325 MG TAB PO SCH (08:53)
[2023-03-23] MEDS: ACETAMINOPHEN 325 MG TAB PO PRN (18:35)
[2023-03-23] MEDS: bisacodyL 5 MG TABEC PO SCH (20:22)
[2023-03-24] MEDS ORDERED: GENTAMICIN SULFATE 460 MG in DEXTROSE 5% 100 ML IV SCH
[2023-03-24] MEDS: IBUPROFEN 600 MG TAB PO PRN (03:42)
[2023-03-24] MEDS: LACTATED RINGER'S 1,000 ML IV SCH ×2 (03:45→07:50)
[2023-03-24] MEDS: ACETAMINOPHEN 325 MG TAB PO PRN (04:57)
[2023-03-24 06:50] LABS: Basophils # (auto) 0.02 K/uL (0.00-0.20); Basophils % (auto) 0.3 %; Eosinophils # (auto) 0.29 K/uL (0.00-0.50); Eosinophils % (auto) 4.3 %; Hematocrit (blood only) 25.3 % (37.0-47.0); Hemoglobin 8.7 g/dl (12.0-16.0); Immature Granulocytes # (auto) 0.15 K/uL (0.01-0.20); Immature Granulocytes % (auto) 2.2 %; Lymphocytes # (auto) 1.04 K/uL (1.20-3.40); Lymphocytes % (auto) 15.2 %; Mean Corpuscular Hgb Conc 34.4 g/dL (32.0-36.0); Mean Platelet Volume 9.4 fL (9.4-12.4); Monocytes # (auto) 0.81 K/uL (0.11-0.59); Monocytes % (auto) 11.9 %; Neutrophils # (auto) 4.51 K/uL (1.40-6.50); Neutrophils % (auto) 66.1 %; Platelet Count 250 K/uL (130-400); RDW Coefficient of Variation 12.9 % (11.5-14.5); RDW Standard Deviation 42.3 fL (36.4-46.3); Red Blood Count 2.81 M/uL (4.20-5.40); White Blood Count 6.82 K/ul (4.8-10.8)
[2023-03-24] MEDS: CLINDAMYCIN/D5W 900 MG/50 ML BAG IV SCH (07:00)
[2023-03-24 07:17] LABS: Albumin Globulin Ratio 1.1 (0.9-2); Albumin Level 2.9 gm/dl (3.4-5.0); BUN Creatinine Ratio 15.6 (10-20); Bilirubin,Total 0.2 mg/dl (0.2-1.0); Calcium 8.6 mg/dl (8.6-10.3); Creatinine Clr Calc Pharmacy 108.9 ml/min; Est GFR (African American) 115.9 ml/min; Globulin 2.7 gm/dl (2.5-4.0); Potassium 3.3 mmol/L (3.5-5.1); Total Protein 5.6 gm/dl (6.0-8.3)
[2023-03-24] MEDS: FERROUS SULFATE 325 MG TAB PO SCH (08:37)
[2023-03-24] MEDS: LABETALOL HCL 200 MG TAB PO SCH (08:37)
[2023-03-24] MEDS: PRENATAL VITAMIN 1 TAB PO SCH (08:37)
--- NOTE | 2023-03-24 09:57 | Obstetrical Progress Note ---
Date of Service March 24, 2023 Subjective Ambulation: ambulating normally Voiding: no voiding problems Passing Gas:: Yes Diet Tolerance:: regular diet Lochia:: Small Feeding Type:: breast feeding Current Pain Level(1-10): 0 doing much better today Physical Exam Constitutional WD/WN, vitals as above Musculoskeletal Extremities: extremities normal to inspection Skin no rashes, warm and dry Neurologic patellar DTR's 2+ bilat, sensation intact Psychiatric A+Ox3, euthymic affect Results & Data Vital Signs (Past 12 Hours) Vital Signs Temp Pulse Pulse Resp BP BP Pulse Ox 03/24/23 07:00 36.5 C 59 L 16 133/79 97 03/24/23 03:45 36.9 C 85 16 134/83 97 03/23/23 23:00 37.0 C 75 16 125/85 96 O2 Del Method 03/24/23 07:00 Room Air 03/24/23 03:45 Room Air 03/23/23 23:00 Room Air Laboratory Results 03/21/23 03/21/23 03/22/23 20:12 22:00 05:04 WBC 13.48 H 13.82 H RBC 3.69 L 3.13 L Hgb 11.4 L 9.7 L Hct 34.0 L 28.7 L MCV 92.1 91.7 MCH 30.9 31.0 MCHC 33.5 33.8 RDW Std Deviation 43.8 43.4 RDW Coeff of Reid 13.1 13.2 Plt Count 226 220 MPV 9.1 L 9.2 L Immature Gran % (Auto) 0.5 0.5 Neut % (Auto) 94.8 93.8 Lymph % (Auto) 1.8 1.6 [place] % (Auto) 2.7 3.5 Eos % (Auto) 0.1 0.4 Baso % (Auto) 0.1 0.2 Neut # (Auto) 12.76 H 12.96 H Lymph # (Auto) 0.24 L 0.22 L [place] # (Auto) 0.37 0.49 Eos # (Auto) 0.02 0.05 Baso # (Auto) 0.02 0.03 Immature Gran # (Auto) 0.07 0.07 Sodium 135 L 133 L Potassium 3.3 L 3.5 Chloride 101 103 Carbon Dioxide 24 19 L Anion Gap 10 11 BUN 12 12 Creatinine 0.83 0.81 Est Cr Clr Drug Dosing 101.0 103.5 Est GFR ( Amer) 105.9 109.1 Est GFR (Non-Af Amer) 91.4 94.1 BUN/Creatinine Ratio 14.5 14.8 Glucose 97 94 Lactate 1.4 Calcium 9.0 8.2 L Magnesium 1.5 L Total Bilirubin 0.6 0.6 Direct Bilirubin 0.2 AST 22 17 ALT 20 16 Alkaline Phosphatase 75 61 Troponin I High Sens 15.8 H Total Protein 6.8 5.7 L Albumin 3.5 2.9 L Globulin 2.8 Albumin/Globulin Ratio 1.0 Procalcitonin 2.04 H Urine Color Yellow Urine Appearance Clear Urine pH 6.0 Ur Specific [place] > 1.045 H Urine Protein Negative Urine Glucose (UA) Negative Urine Ketones 1+ H Urine Blood 1+ H Urine Nitrite Negative Urine Bilirubin Negative Urine Urobilinogen Negative Ur Leukocyte Esterase Trace H Urine WBC (Auto) 5-10 H Urine RBC (Auto) 0-4 U Hyaline Cast (Auto) 1-5 U Epithel Cells (Auto) >30 H Urine Bacteria (Auto) Negative Ur Renal Epithelial Cell 0-5 Adenovirus (PCR) Not Detected B. pertussis DNA (PCR) Not Detected B.parapertussis DNA PCR Not Detected C. pneumoniae DNA (PCR) Not Detected Coronavirus OC43 (PCR) Not Detected Coronavirus HKU1 (PCR) Not Detected Coronavirus 229E (PCR) Not Detected SARS-CoV-2 (PCR) Not Detected Coronavirus NL63 (PCR) Not Detected Human Metapneumovir PCR Not Detected Influenza Type A (PCR) Not Detected Influenza Type B (PCR) Not Detected M. pneumoniae (PCR) Not Detected Parainfluenza 1 (PCR) Not Detected Parainfluenza 2 (PCR) Not Detected Parainfluenza 3 (PCR) Not Detected Parainfluenza 4 (PCR) Not Detected RSV (PCR) Not Detected Entero/Rhino (PCR) Not Detected 03/23/23 03/24/23 06:18 06:31 WBC 11.34 H 6.82 RBC 3.44 L 2.81 L Hgb 10.7 L 8.7 L Hct 32.0 L 25.3 L MCV 93.0 90.0 MCH 31.1 31.0 MCHC 33.4 34.4 RDW Std Deviation 43.8 42.3 RDW Coeff of [place] 13.0 12.9 Plt Count 267 250 MPV 9.6 9.4 Immature Gran % (Auto) 1.1 2.2 Neut % (Auto) 84.3 66.1 Lymph % (Auto) 5.6 15.2 [place] % (Auto) 7.5 11.9 Eos % (Auto) 1.3 4.3 Baso % (Auto) 0.2 0.3 Neut # (Auto) 9.56 H 4.51 Lymph # (Auto) 0.63 L 1.04 L [place] # (Auto) 0.85 H 0.81 H Eos # (Auto) 0.15 0.29 Baso # (Auto) 0.02 0.02 Immature Gran # (Auto) 0.13 0.15 Sodium 134 L 140 Potassium 3.5 3.3 L Chloride 104 109 H Carbon Dioxide 21 20 L Anion Gap 9 11 BUN 15 12 Creatinine 0.96 0.77 Est Cr Clr Drug Dosing 87.4 108.9 Est GFR ( Amer) 88.8 115.9 Est GFR (Non-Af Amer) 76.6 100.0 BUN/Creatinine Ratio 15.6 15.6 Glucose 101 H 91 Lactate Calcium 8.5 L 8.6 Magnesium Total Bilirubin 0.4 0.2 Direct Bilirubin AST 18 13 ALT 16 14 Alkaline Phosphatase 75 61 Troponin I High Sens Total Protein 6.1 5.6 L Albumin 3.0 L 2.9 L Globulin 3.1 2.7 Albumin/Globulin Ratio 1.0 1.1 Procalcitonin Urine Color Urine Appearance Urine pH Ur Specific [place] Urine Protein Urine Glucose (UA) Urine Ketones Urine Blood Urine Nitrite Urine Bilirubin Urine Urobilinogen Ur Leukocyte Esterase Urine WBC (Auto) Urine RBC (Auto) U Hyaline Cast (Auto) U Epithel Cells (Auto) Urine Bacteria (Auto) Ur Renal Epithelial Cell Adenovirus (PCR) B. pertussis DNA (PCR) B.parapertussis DNA PCR C. pneumoniae DNA (PCR) Coronavirus OC43 (PCR) Coronavirus HKU1 (PCR) Coronavirus 229E (PCR) SARS-CoV-2 (PCR) Coronavirus NL63 (PCR) Human Metapneumovir PCR Influenza Type A (PCR) Influenza Type B (PCR) M. pneumoniae (PCR) Parainfluenza 1 (PCR) Parainfluenza 2 (PCR) Parainfluenza 3 (PCR) Parainfluenza 4 (PCR) RSV (PCR) Entero/Rhino (PCR)
== END 2023-03-24 10:45 | disposition home or self-care (01) | DRG 761 ==
LOC: ED 16:44 → EDINP 23:14 → 4E2 03-22 02:30
DX: N80.9 Endometriosis, unspecified